=== PATIENT | female | born 1965 | race Caucasian/White ===

== ENCOUNTER → 2016-04-26 | Outpatient (CLI) | payer BC ==
[~2016-04-26] MED LIST: ACET-1256 PO; ADVIN25/60 INH; ALBU1AER9 INH; ASTN; IBUP-103 PO; LORA-741 PO; NUTR1TAB PO; PRLSR20 PO; SERT-234 PO; VENL25TA2 PO
--- NOTE | 2016-04-26 16:26 | MAMMOGRAPHY REPORT ---
BILATERAL DIGITAL SCREENING MAMMOGRAM TOMOSYNTHESIS WITH CAD: 04/26/2016 TECHNIQUE: Breast tomosynthesis in addition to standard 2D mammography was performed. Current study was also evaluated with a Computer Aided Detection (CAD) system. COMPARISON: Comparison is made to exams dated: 04/23/2015 mammogram, 04/19/2013 mammogram, 04/15/2010 ma mmogram, 04/22/2014 mammogram, 04/18/2012 mammogram, and 04/16/2011 mammogram - [facility] er. BREAST COMPOSITION: There are scattered areas of fibroglandular density in both breasts. FINDINGS: No suspicious masses, calcifications, or areas of architectural distortion are noted in e ither breast. There has been no significant interval change compared to prior exams. Bilateral circ umscribed benign-appearing masses are not significantly changed. Scattered bilateral benign-appeari ng calcifications are stable. IMPRESSION: ACR BI-RADS CATEGORY 2: BENIGN There is no mammographic evidence of malignancy. A 1 year screening mammogram is recommended. The p atient will receive written notification of the results. Approximately 10% of breast cancers are not detected with mammography. A negative mammographic repor t should not delay biopsy if a clinically suggestive mass is present. Jena Ryan M.D. ah/:04/26/2016 12:53:42 Program Development Manager: Gia RANDOLPH)(Anh), [facility] letter sent: Normal 1/2 BI-RADS Code: ACR BI-RADS Category 2: Benign
== END | disposition home or self-care (01) ==
LOC: C.MAMM 10:08
PROVIDERS: ATTEND Nurse Practitioner
DX: Z12.31 Encounter for screening mammogram for malignant neoplasm of breast (principal)

== ENCOUNTER → 2016-07-10 | Outpatient (CLI) | payer BC ==
[2016-07-10 13:37] LABS: ESTIMATED AVERAGE GLUCOSE 143 mg/dl; HA1C FLAG Normal (Normal)
[2016-07-10 13:43] LABS: BLOOD UREA NITROGEN 9 mg/dl (7-18); BUN/CREATININE RATIO 12.2 (10-20); CARBON DIOXIDE 25 mmol/L (21-32); CHLORIDE 109 mmol/L (98-107); CREATININE 0.74 mg/dl (0.60-1.20); GLUCOSE 130 mg/dl (70-99); POTASSIUM 3.9 mmol/L (3.5-5.1); SODIUM 142 mmol/L (136-145)
[2016-07-10 13:47] LABS: CALCIUM 9.1 mg/dl (8.5-10.1)
== END | disposition home or self-care (01) ==
LOC: C.LABPVFM 08:25
PROVIDERS: ATTEND Nurse Practitioner
DX: E11.9 Type 2 diabetes mellitus without complications (principal)

== ENCOUNTER → 2016-11-20 | Outpatient (CLI) | payer BC ==
[2016-11-20 14:21] LABS: ESTIMATED AVERAGE GLUCOSE 137 mg/dl; HA1C FLAG Normal (Normal)
[2016-11-20 14:25] LABS: BLOOD UREA NITROGEN 9 mg/dl (7-18); BUN/CREATININE RATIO 12.6 (10-20); CALCIUM 8.5 mg/dl (8.5-10.1); CARBON DIOXIDE 25 mmol/L (21-32); CHLORIDE 109 mmol/L (98-107); CREATININE 0.74 mg/dl (0.60-1.20); GLUCOSE 125 mg/dl (70-99); POTASSIUM 4.1 mmol/L (3.5-5.1); SODIUM 140 mmol/L (136-145)
[2016-11-20 14:28] LABS: CHOLESTEROL 146 mg/dl (0-200); CHOLESTEROL/HDL RATIO 1.8; HDL CHOLESTEROL 79 mg/dl; LDL CHOLESTEROL CALCULATED 49 mg/dl; TRIGLYCERIDES 88 mg/dl (0-150); VERY LOW DENSITY LIPOPROT CALC 18 mg/dl
== END | disposition home or self-care (01) ==
LOC: C.LABPVFM 08:21
PROVIDERS: ATTEND Nurse Practitioner
DX: E11.9 Type 2 diabetes mellitus without complications (principal); K76.0 Fatty (change of) liver, not elsewhere classified; E55.9 Vitamin D deficiency, unspecified

== ENCOUNTER 2017-04-13 11:19 | Emergency (ER) | payer BC ==
[~2017-04-13] VITALS: Ht 165.1 cm; Wt 89.4 kg
[2017-04-13 11:22] VITALS: Ht 165.1 cm; Wt 89.4 kg
[2017-04-13] MEDS ORDERED: KETOROLAC TROMETHAMINE 60 MG/2 ML VIAL IM STA (11:54)
[2017-04-13] MEDS ORDERED: NUTRTAB40 PO (12:06)
[2017-04-13] MEDS ORDERED: MAGN400T6 PO (12:06)
[2017-04-13] MEDS ORDERED: METH-307 PO (12:06)
[2017-04-13] MEDS ORDERED: DICL-201 PO (12:06)
[2017-04-13] MEDS ORDERED: ADVIN25/60 INH (12:06)
[2017-04-13] MEDS ORDERED: GLC/500 PO (12:06)
[2017-04-13] MEDS ORDERED: LOSA1TAB PO (12:06)
--- NOTE | 2017-04-13 12:24 | DIAGNOSTIC IMAGING REPORT ---
L-SPINE MIN 4 VIEWS ROUTINE CLINICAL HISTORY: low back pain with radiculopathy COMPARISON STUDY: No previous studies for comparison. FINDINGS: No acute fractures or subluxations are visualized. There are mild degenerative changes most pronounced at the L5-S1 level. No destructive lesions are visualized on conventional radiographic imaging. IMPRESSION: Mild degenerative change. No acute fractures or subluxations identified Electronically signed by: Ruben Beard M.D. 04/13/2017 12:23 PM Dictated Date/Time: 04/13/2017 12:22 PM
[2017-04-13] MEDS ORDERED: METH750T PO (13:18)
[2017-04-13] MEDS ORDERED: METH4PAK PO (13:18)
[2017-04-13 13:41] VITALS: BP 129/76; PULSE 63; TEMP 36.7; O2SAT 97
--- NOTE | 2017-04-13 15:18 | EMERGENCY ROOM VISIT NOTE ---
ED Visit Note First contact with patient: 11:30 CHIEF COMPLAINT: "I hurt" HISTORY OF PRESENT ILLNESS: This 51-year-old female patient presents to the emergency department ambulatory, with her , complaining of pain in the low back which began approximately one month ago. The patient states the pain began spontaneously while getting out of bed one day. She does believe that she may have twisted and injured the muscles in her lower back. She had been wearing a back brace to work, and then did go see her primary care provider. She was given a course of Robaxin and Voltaren for her discomfort. She states she was feeling better, then 1 week later was sent to physical therapy. She states since physical therapy for 2 weeks, her symptoms have been getting worse. The pain was gradual in onset, is now constant and worse with movement. The patient notes the pain as severe and a 7/10. She describes the pain as "like a ball in my low back, like a hot tinter photograph the back of my thigh, and like sandpaper in my calf". She has not had any imaging performed. The patient has taken Robaxin and Voltaren without relief of the pain. The patient denies any loss of control of their bowel or bladder functions. There has been no leg numbness or weakness, and no change in sensation. No nausea or vomiting or abdominal pain. No chest pain or shortness of breath. The patient has not had prior back injuries, but does report similar symptoms approximately one year ago. No dysuria or increased urinary frequency. Physical therapy did recommend pain management, but the patient is waiting for a call back regarding pain management. She states "I cannot wait any longer". REVIEW OF SYSTEMS: A 10 system review of systems was performed with positives and pertinent negatives listed in the history of present illness. All other systems were reviewed and are negative. ALLERGIES: None MEDICATIONS: Diclofenac, Advair, Cozaar, magnesium, Glucophage, Robaxin, estroven, Prilosec, Effexor PMH: Diabetes, asthma SOCIAL HISTORY: The patient lives locally with family. She admits to smoking one pack of cigarettes per day. She denies drug or alcohol use. PHYSICAL EXAM: VITALS: Vitals are noted on the nurse's note and reviewed by myself. Vital signs stable. GENERAL: This is a 51-year-old obese white female, in no acute distress, nondiaphoretic, well-developed well-nourished. SKIN: The skin was without rashes, erythema, edema, or bruising. Capillary refill less than 2 seconds. NECK: Supple without nuchal rigidity. No cervical spine tenderness. No paraspinous muscle tenderness. HEART: Regular rate and rhythm without murmurs gallops or rubs. LUNGS: Clear to auscultation bilaterally without wheezes, rales or rhonchi. ABDOMEN: Positive bowel sounds x 4. Normal tympanic percussion. Soft, nontender, without masses or organomegaly. Ellis sign negative. MUSCULOSKELETAL: No muscle atrophy, erythema, or edema noted of the back. There is no tenderness over the lumbar spinous processes. There is moderate tenderness over the paraspinous muscles in the right, overlying the SI joint. There is no tenderness over the thoracic spine or paraspinous muscles. There are muscle spasms present. The patient is slow to move around with maximum tenderness with position changes. Positive straight leg raise test on the right. NEURO: Patient was alert and oriented to person place and time. Normal sensation to light and sharp touch. Deep tendon reflexes 2+ in the lower extremities. Dorsalis pedis pulse 2+ bilaterally. Strength 5/5 and equal in the bilateral lower extremities. RADIOLOGY: X-Ray L Spine FINDINGS: No acute fractures or subluxations are visualized. There are mild degenerative changes most pronounced at the L5-S1 level. No destructive lesions are visualized on conventional radiographic imaging. IMPRESSION: Mild degenerative change. No acute fractures or subluxations identified EMERGENCY DEPARTMENT COURSE: The patient was seen and evaluated as above. She was given 60 mg Toradol IM. X-rays of the lumbar spine were performed and reviewed by myself and radiologist. These showed some degenerative change at L5 -S1, but did not show any significant bony abnormality or obvious lesions. The patient was reassessed and did note mild improvement in her back pain. Discharge instructions reviewed, and the patient was discharged home in good condition. I attest that I have personally reviewed the patient's current medication list. Patient was found to have normal blood pressure on screening and does not require follow-up. Etiologies such as lumbago, sciatica, cauda equina, epidural abscess, osteomyelitis, fracture, aortic disease, metastatic disease, infection, renal colic, gastrointestinal, as well as others were entertained. DIAGNOSIS: Lumbar strain with sciatica Current/Historical Medications Scheduled Diclofenac (Voltaren), 75 MG PO BID Fluticasone Prop/Salmeterol (Advair Diskus 250/50 60 Dose), 1 PUFF INH BID Fluticasone Prop/Salmeterol (Advair Diskus 250/50 60 Dose), 1 PUFF INH BID Losartan Potassium (Cozaar), 25 MG PO DAILY Magnesium Oxide (Mag-Ox), 400 MG PO DAILY Metformin Hcl (Glucophage), 500 MG PO BID Methocarbamol (Robaxin), 750 MG PO BID Methylprednisolone (Medrol Dosepak), 0 PO DAILY Nutritional Supplements (Estroven), 1 TAB PO DAILY Omeprazole (Prilosec), 20 MG PO QAM Venlafaxine Hcl (Effexor), 25 MG PO BID Scheduled PRN Methocarbamol (Robaxin), 1 TAB PO TID PRN for Muscle Spasms Allergies Coded Allergies: No Known Allergies (Verified , 04/26/02) Vital Signs Date Time Temp Pulse Resp B/P (MAP) Pulse Ox O2 Delivery O2 Flow Rate FiO2 04/13/17 13:41 36.7 63 18 129/76 97 04/13/17 11:22 36.7 70 18 139/85 98 Room Air Medications Administered Medications (Trade) Dose Ordered Sig/Leydi Route Start Time Stop Time Status Last Admin Dose Admin Ketorolac Tromethamine (Toradol Inj) 60 mg NOW STAT IM 04/13/17 11:54 04/13/17 11:56 DC 04/13/17 12:08 60 MG Departure Information Impression Primary Impression: Strain of lumbar region Additional Impression: Sciatica Dispostion Home / Self-Care Condition GOOD Prescriptions Methocarbamol (ROBAXIN) 750 Mg Tab 1 TAB PO TID Y for Muscle Spasms, #30 TAB Prov: oRxana Ibarra PA-C 04/13/17 Methylprednisolone (MEDROL DOSEPAK) 4 Mg Baudilio 0 PO DAILY, #1 PKT Prov: Roxana Ibarra PA-C 04/13/17 Referrals Faith Lawrence C.R.N.P (PCP) Patient Instructions ED Neck Back Pain General, ED Sciatica, ED Spasm Muscle, [facility] Additional Instructions You have been treated in the Emergency Department for Back Pain. You have been prescribed Robaxin 1 tabs orally, three times per day. Do NOT exceed 3 tabs per day. Take your first dose at bedtime as it can make you drowsy. Always take all medications as prescribed. You have been prescribed a Medrol Dosepak. This is a steroid which will help decrease your inflammation, redness, and itch. Take the medicine as prescribed. Take the ENTIRE 6 day course of the steroids. Ibuprofen(Motrin, Advil) may be used for fever or pain. Use 600mg every six hours as needed. Take with food. Avoid using more than 2400mg in a 24 hour period. Do not use 2400mg per day for more than three consecutive days without physician direction. Prolonged inappropriate use can lead to stomach upset or ulcers. DO NOT TAKE THIS MEDICATION WHILE TAKING OTHER NSAIDS OR STEROIDS ( medrol dosepak). (AND/OR) Acetaminophen(Tylenol) may be used for fever or pain. Use 1000mg every six hours as needed. Avoid using more than 3000mg in a 24 hour period. If this is an acute injury, ice can be applied to the area of pain for the first 3 days to help decrease pain and inflammation. After the first 3 days, a heating pad can be used over the area for continued soothing relief. You should schedule a follow-up appointment in 2-3 days with your Primary Care Provider for further evaluation and treatment of your back pain. Return to the Emergency Department if your current symptoms worsen despite treatment course outlined above, or if you develop any of the following symptoms : intractable pain despite aforementioned treatment course, loss of control of your bowel or bladder, numbness or tingling in your groin, or development of a fever. Work Instructions Return To Work: 2 days Problem Qualifiers Primary Impression: Strain of lumbar region Encounter type: initial encounter Qualified Codes: S39.012A - Strain of muscle, fascia and tendon of lower back, initial encounter Additional Impression: Sciatica Laterality: right Qualified Codes: M54.31 - Sciatica, right side
[2017-04-15] MEDS ORDERED: CHOL2000 PO (08:25)
== END 2017-04-13 13:45 | disposition home or self-care (01) ==
LOC: C.EDB 11:20 → C.EDD 13:45
DX: S39.012A Strain of muscle, fascia and tendon of lower back, initial encounter (principal); X58.XXXA Exposure to other specified factors, initial encounter; M51.17 Intervertebral disc disorders with radiculopathy, lumbosacral region; E11.9 Type 2 diabetes mellitus without complications; J45.909 Unspecified asthma, uncomplicated; Z79.84 Long term (current) use of oral hypoglycemic drugs

== ENCOUNTER → 2017-04-28 | Outpatient (CLI) | payer BC ==
[~2017-04-28] MED LIST changes: -ACET-1256 PO; -ADVIN25/60 INH; -ALBU1AER9 INH; -ASTN; +CHOL2000 PO; +DICL-201 PO; +GLC/500 PO; -IBUP-103 PO; -LORA-741 PO; +LOSA1TAB PO; +MAGN400T6 PO; +METH-307 PO; -NUTR1TAB PO; +NUTRTAB40 PO; -SERT-234 PO
--- NOTE | 2017-04-28 14:46 | DIAGNOSTIC IMAGING REPORT ---
LUMBAR SPINE W/O CONTRAST CLINICAL HISTORY: 51 years-old Female with M54.30 [id number] Radicular low back [id number]. Acute low back pain with radiation into the right hip and right leg COMPARISON: Lumbar spine radiographs 04/13/2017 TECHNIQUE: Multiplanar, multi sequence MRI of the lumbar spine was performed without intravenous contrast. FINDINGS: The large uoaqq-pj-qkol chain carrier localizer images demonstrate no gross abnormality. No acute intra-abdominal, intrapelvic or paraspinal abnormality identified. No aortic aneurysm or adenopathy identified. No focal soft tissue or bone marrow edema or acute fracture or subluxation. Conus medullaris terminates at the L1-L2 level. Signal within the imaged thoracic spinal cord appears to be within normal limits. The cauda equina appear unremarkable. 9 mm T1 and T2 hyperintense lesion of the L4 vertebral body suggests hemangioma. Probable small perineural root sleeve cysts are seen bilaterally at S2 level measuring up to 9 mm. T12-L1: No central canal or neural foraminal stenosis. L1-L2: Minimal spondylitic spurring and mild facet arthrosis. No central canal or foraminal narrowing. L2-L3: Mild facet arthrosis and ligamentum flavum thickening. No central canal or foraminal narrowing. L3-L4: Mild facet arthrosis and ligamentum flavum thickening. No central canal or foraminal narrowing. Mild disc desiccation and mild intervertebral disc space narrowing L4-L5: Mild facet arthrosis and ligamentum flavum thickening. Small circumferential annular disc bulge which favors the left neuroforamen causes mild left foraminal narrowing. Right foramen and central canal are patent. L5-S1: Mild to moderate intervertebral disc space narrowing with spondylitic spurring, mild facet arthrosis and ligamentum flavum thickening with trace facet effusions. There is a small circumferential annular disc bulge. Right paracentral, lateral recess and right foraminal disc extrusion measures up to 2.1 x 0.4 cm extending superiorly 8 mm to the level of the mid L5 vertebral body. This causes mild central canal, severe right lateral recess and moderate right foraminal narrowing abutting and displacing the right S1 nerve root. Additionally, at this level there is a left lateral recess/foraminal disc extrusion measuring 9 x 9 mm which extends superiorly approximately 4 mm resulting in mild left lateral recess and moderate left foraminal narrowing. IMPRESSION: 1. Mild to moderate intervertebral disc space narrowing with small circumferential annular disc bulge at L5-S1 is noted in addition to mild facet arthrosis and ligamentum flavum thickening. Large right paracentral/lateral recess and right foraminal disc extrusion at this level causes mild central canal, severe right lateral recess and moderate right foraminal narrowing, abutting and displacing the right S1 nerve root. 2. Additionally at L5-S1, there is a left lateral recess/foraminal disc extrusion causing mild left lateral recess and moderate left foraminal narrowing. 3. Small circumferential annular disc bulge L4-L5 causes mild left foraminal stenosis. The above report was generated using voice recognition software. It may contain grammatical, syntax or spelling errors. Electronically signed by: Tyrone Escamilla M.D. 04/28/2017 2:45 PM Dictated Date/Time: 04/28/2017 2:33 PM
== END | disposition home or self-care (01) ==
LOC: C.MRIBC 13:46
PROVIDERS: ATTEND Nurse Practitioner
DX: M51.17 Intervertebral disc disorders with radiculopathy, lumbosacral region (principal)

== ENCOUNTER → 2017-04-28 | Outpatient (CLI) | payer BC ==
--- NOTE | 2017-04-28 15:10 | MAMMOGRAPHY REPORT ---
BILATERAL DIGITAL SCREENING MAMMOGRAM TOMOSYNTHESIS WITH CAD: 04/28/2017 CLINICAL HISTORY: Routine screening. Patient has no complaints. TECHNIQUE: Breast tomosynthesis in addition to standard 2D mammography was performed. Current study was also evaluated with a Computer Aided Detection (CAD) system. COMPARISON: Comparison is made to exams dated: 04/26/2016 mammogram, 04/23/2015 mammogram, 04/22/2014 ma mmogram, 04/19/2013 mammogram, 04/18/2012 mammogram, and 04/16/2011 mammogram - [facility] BREAST COMPOSITION: There are scattered areas of fibroglandular density in both breasts. FINDINGS: No suspicious masses, calcifications, or areas of architectural distortion are noted in ei ther breast. There has been no significant interval change compared to prior exams. Bilateral circum scribed benign-appearing masses are not significantly changed. Scattered bilateral benign-appearing calcifications are stable. IMPRESSION: ACR BI-RADS CATEGORY 2: BENIGN There is no mammographic evidence of malignancy. A 1 year screening mammogram is recommended. The pa tient will receive written notification of the results. Approximately 10% of breast cancers are not detected with mammography. A negative mammographic report should not delay biopsy if a clinically suggestive mass is present. Jena Ryan M.D. /:04/28/2017 09:27:21 Tactical Response Group Officer: Anu Monae M, [facility] letter sent: Normal 1/2 BI-RADS Code: ACR BI-RADS Category 2: Benign
== END | disposition home or self-care (01) ==
LOC: C.MAMM 07:51
PROVIDERS: ATTEND Nurse Practitioner
DX: Z12.31 Encounter for screening mammogram for malignant neoplasm of breast (principal)

== ENCOUNTER 2017-05-30 08:24 | Observation (INO) | payer BC ==
[2017-05-18 15:15] VITALS: BMI 33.0
--- NOTE | 2017-05-18 15:45 | PAT Medication Instructions ---
Service Date May 18, 2017. Current Home Medication List Acetaminophen (Tylenol), 3 TAB PO BID Albuterol Sulfate (Proair Respiclick), 2 PUFFS INH QD PRN for SOB/Wheezing B-Complex W/Biotin & Folic Aci (Super B-Complex), 1 CAP PO QAM Cholecalciferol (D3-1000), 1 TAB PO QAM Fluticasone Furoate (Flonase Sensimist), 1 SPRAY ROBERT QAM Fluticasone Prop/Salmeterol (Advair Diskus 250/50 60 Dose), 1 PUFF INH QAM Gabapentin (Neurontin), 100 MG PO QPM Ibuprofen (Motrin), 600 MG PO BID Losartan Potassium (Cozaar), 25 MG PO QAM Magnesium Oxide (Mag-Ox), 400 MG PO QAM Metformin Hcl (Glucophage), 500 MG PO BID Nutritional Supplements (Estroven), 1 TAB PO QAM Omeprazole (Prilosec), 20 MG PO QAM Venlafaxine Hcl (Effexor), 25 MG PO BID Medication Instructions For Your Scheduled Surgery - Hold the following medications 2 weeks prior to surgery: Ibuprofen (Motrin), 600 MG PO BID - Hold the following medications the morning of surgery: Nutritional Supplements (Estroven), 1 TAB PO QAM Metformin Hcl (Glucophage), 500 MG PO BID Losartan Potassium (Cozaar), 25 MG PO QAM Magnesium Oxide (Mag-Ox), 400 MG PO QAM B-Complex W/Biotin & Folic Aci (Super B-Complex), 1 CAP PO QAM Cholecalciferol (D3-1000), 1 TAB PO QAM - Take the following medications the morning of surgery with a sip of water: Acetaminophen (Tylenol), 3 TAB PO BID (okay to take up to 4 hours prior to surgery if needed) Albuterol Sulfate (Proair Respiclick), 2 PUFFS INH QD PRN for SOB/Wheezing (if needed) Fluticasone Furoate (Flonase Sensimist), 1 SPRAY ROBERT QAM Fluticasone Prop/Salmeterol (Advair Diskus 250/50 60 Dose), 1 PUFF INH QAM Omeprazole (Prilosec), 20 MG PO QAM Venlafaxine Hcl (Effexor), 25 MG PO BID - Take the following medications as scheduled the night before surgery: Venlafaxine Hcl (Effexor), 25 MG PO BID Metformin Hcl (Glucophage), 500 MG PO BID Gabapentin (Neurontin), 100 MG PO QPM Acetaminophen (Tylenol), 3 TAB PO BID Albuterol Sulfate (Proair Respiclick), 2 PUFFS INH QD PRN for SOB/Wheezing (if needed) If you have any questions please call us at [phone] or [phone] or [phone]
[2017-05-18 16:17] LABS: HEMATOCRIT 42.4 % (37-47); HEMOGLOBIN 15.1 g/dL (12.0-16.0); MEAN CELL VOLUME 92.8 fL (80-100); MEAN CORPUSCULAR HGB CONC 35.6 g/dl (32-36); MEAN PLATELET VOLUME 10.6 fL (7.4-10.4); PLATELET COUNT 138 K/uL (130-400); RED CELL DISTRIBUTION WIDTH CV 13.3 % (11.5-14.5); WHITE BLOOD COUNT 8.75 K/uL (4.8-10.8)
[2017-05-18 16:27] LABS: PTT PATIENT 28.5 SECONDS (21.0-31.0)
[2017-05-18 16:28] LABS: CREATININE 0.61 mg/dl (0.60-1.20); POTASSIUM 3.5 mmol/L (3.5-5.1)
--- NOTE | 2017-05-18 16:28 | DIAGNOSTIC IMAGING REPORT ---
TWO VIEW CHEST CLINICAL HISTORY: Preoperative examination. FINDINGS: PA and lateral chest radiographs are obtained. No prior studies are available for comparison at the time of dictation. The cardiomediastinal silhouette is unremarkable. The lungs and pleural spaces are clear. There is no pneumothorax. The bony thorax appears intact. IMPRESSION: No active disease in the chest. Electronically signed by: [place] M.D. 05/18/2017 4:27 PM Dictated Date/Time: 05/18/2017 4:26 PM
[2017-05-18 16:58] LABS: BASO % 0.5 %; BASO ABS # 0.04 K/uL (0-0.2); EOS % 1.5 %; EOS ABS # 0.13 K/uL (0-0.5); IG# 0.01 K/uL (0.00-0.02); LYMPH % 51.5 %; LYMPH ABS # 4.51 K/uL (1.2-3.4); MONO % 6.9 %; NEUT % 39.5 %; NEUT ABS # 3.46 K/uL (1.4-6.5)
[2017-05-19 08:51] LABS: HEMOGLOBIN A1C 6.7 % (4.5-5.6)
--- NOTE | 2017-05-29 12:54 | HISTORY & PHYSICAL EXAMINATION ---
DATE OF ADMISSION: 05/30/2017 HISTORY OF PRESENT ILLNESS: She is being preoped for lumbar spine diskectomy at L5-S1. Her major complaint is progressive leg weakness and lower extremity difficulty to the extremities. She has actually progressed enough that she uses a walker for support. She has a completely deficient S1 nerve root on the affected right hand side. PAST MEDICAL HISTORY: Diabetes, anxiety, and asthma. PAST SURGICAL HISTORY: Appendectomy and cholecystectomy. ALLERGIES: Negative. MEDICATIONS: Metformin, Effexor, Cozaar, Prilosec, Neurontin, Flonase, ProAir and Tylenol. FAMILY HISTORY: Heart disease and diabetes. SOCIAL HISTORY: She is . Rarely drinks alcohol. Mild tobacco. Moderately active. REVIEW OF SYSTEMS: She denies any fever, sweats, chills, or other constitutional symptoms. Occasional headaches. Denies chest pain or palpitations. Denies any asthma, wheezing, or shortness of breath. No nausea, vomiting, urgency, frequency or bowel or bladder incontinence. No confusion. Occasional depression. She has true weakness. OBJECTIVE: VITAL SIGNS: Blood pressure 120/80 and pulse regular at 80. Height 5 feet 4 inches and she is 170. GENERAL: She is in distress, concerned use of a walker for support. Mentation normal. No apparent depression. CARDIAC: Normal S1 and S2. LUNGS: Clear to auscultation. No wheezing. No lymphadenopathy. ABDOMEN: Soft and nontender. Good bowel sounds. EXTREMITIES: Intact. She has weakness of pushoff strength in dorsiflexion, right hand side. Her skin seems to be intact. She has pain with straight leg raising as well. Her images demonstrated disk herniation at L5-S1. 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 Progressive neurological deficit with true weakness. DISPOSITION: Includes surgery tomorrow on the 30 of May, laminectomy and diskectomy at L5-S1.
[2017-05-30] VITALS (9 sets, daily range): BP systolic 108–153; BP diastolic 66–90; PULSE 65–81; TEMP 36.7–37.1; O2SAT 90–97; Ht 165.1 cm; Wt 90.1 kg
[~2017-05-30] VITALS: Ht 165.1 cm; Wt 90.1 kg
[~2017-05-30 08:24] MED LIST changes: +ACET-1256 PO; +ACETAMINOPHEN IV 100 ML IV SCH; +ADVIN25/60 INH; +ALBU18002 INH; +B-CO1CAP5 PO; +CEFAZOLIN 2000MG IV PUSH 15 ML IV SCH; -CHOL2000 PO; +CHOLTAB9 PO; +DEXAMETHASONE SOD INJ 4 MG/ML VIAL ONE; -DICL-201 PO; +FENTANYL CITRATE INJ 50 MCG/1 ML 2 ML VIAL ONE; +FLUT27.53 NAE; +GABA-112 PO; +GLYCOPYRROLATE INJ 0.2 MG/ML VIAL ONE; +IBUP600T44 PO; +LACTATED RINGER'S 1000ML 1,000 ML IV SCH; +LIDOCAINE HCL 2% 2 ML VIAL (20MG/ML) ONE; -METH-307 PO; +MIDAZOLAM HCL 1 MG/ML 2ML VIAL ONE; +NEOSTIGMINE METHYLSULFATE 5 MG/5 ML SYR ONE; +NSS 1000ML IV SCH; +ONDANSETRON INJ 2 MG/ML 2 ML VIAL ONE; +PROPOFOL IV EMULSION 10 MG/ML 20 ML VIAL IV ONE; +ROCURONIUM BROMIDE 10 MG/ML 5 ML VIAL IV ONE
[2017-05-30] MEDS ORDERED: EpHEDrine SULFATE INJ 50 MG/ML AMP IV PRN (08:45)
[2017-05-30] MEDS ORDERED: ATROPINE SULFATE 0.1 MG/ML 5ML SYR IV PRN (08:45)
[2017-05-30] MEDS ORDERED: ONDANSETRON INJ 2 MG/ML 2 ML VIAL IV PRN ×2 (08:45→12:45)
[2017-05-30] MEDS ORDERED: ROCURONIUM BROMIDE 10 MG/ML 5 ML VIAL IV ONE ×2 (09:10)
[2017-05-30] MEDS ORDERED: ACETAMINOPHEN 1000 MG/100 ML IV IV ONE (09:37)
[2017-05-30] MEDS ORDERED: GELATIN SPONGE SZ 100 ONE (11:05)
[2017-05-30] MEDS ORDERED: THROMBIN FOR SOLN 20000 UNIT KIT ONE (11:05)
[2017-05-30] MEDS ORDERED: BUPIVACAINE/EPINEPHRINE 0.5% MPF 1:200,000 30 ML VIAL ONE (11:06)
[2017-05-30] MEDS ORDERED: BACITRACIN 50000 UNIT VIAL ONE (11:06)
[2017-05-30] MEDS ORDERED: VANCOMYCIN HCL 1000MG/20ML VIAL ONE (11:07)
--- NOTE | 2017-05-30 11:15 | History & Physical Bridge Note ---
H&P Re-Evaluation Bridge Note: I have examined the patient, reviewed the History & Physical and in the interval since the performance of the History & Physical I have noted the following changes of clinical significance: No changes noted
[2017-05-30] MEDS ORDERED: FENTANYL CITRATE INJ 50 MCG/1 ML 2 ML VIAL ONE (12:02)
--- NOTE | 2017-05-30 12:32 | [facility] Post Operative Brief Note ---
Immediate Operative Summary Operative Date May 30, 2017. Pre-Operative Diagnosis Disc herniation L5-S1 Post-Operative Diagnosis Disc herniation L5-S1 Procedure(s) Performed L5-S1 Discectomy Surgeon Dr. Ho Pilot Fuel Engineer Surgeon(s) Leonid Marcum PA-C Estimated Blood Loss 50ml Findings Consistent with Post-Op Diagnosis Specimens none per surgeon Drains hemovac Anesthesia Type General Complication(s) none Disposition Disposition: Recovery Room / PACU
[2017-05-30] MEDS ORDERED: GLYCOPYRROLATE INJ 0.2 MG/ML VIAL ONE (12:37)
[2017-05-30] MEDS ORDERED: HYDROmorphone INJ 1 MG/ML SYR IV PRN ×2 (12:45)
[2017-05-30] MEDS ORDERED: OXYCODONE/ACETAMINOPHEN 5-325 TAB PO PRN (12:45)
[2017-05-30] MEDS ORDERED: PROMETHAZINE HCL INJ 12.5 MG in SODIUM CHLORIDE 0.9% 50ML 50 ML IV PRN (12:45)
[2017-05-30] MEDS ORDERED: LORAZEPAM INJ 1 MG in SYRINGE 0 ML IV PRN (12:45)
[2017-05-30] MEDS ORDERED: MAGNESIUM HYDROXIDE SUSP 30 ML UDC PO PRN (12:45)
[2017-05-30] MEDS ORDERED: LORAZEPAM 1 MG TAB PO PRN (12:45)
[2017-05-30] MEDS ORDERED: ACETAMINOPHEN 325 MG TAB PO PRN (12:45)
[2017-05-30] MEDS ORDERED: METOCLOPRAMIDE HCL INJ 5 MG/ML 2 ML VIAL IV PRN (12:45)
[2017-05-30] MEDS: FENTANYL CITRATE INJ 50 MCG/1 ML 2 ML VIAL IV PRN ×4 (13:03→13:21)
--- NOTE | 2017-05-30 13:16 | OPERATIVE REPORT ---
DATE OF OPERATION: 05/30/2017 PREOPERATIVE DIAGNOSES: Disc herniation, stenosis L5-S1. POSTOPERATIVE DIAGNOSES: Same. PROCEDURE: Include laminectomy, discectomy L5-S1. SURGEON: Dr. Ho. PRIVATE EYE: Leonid Marcum PA-C. COMPLICATIONS: Zero. BLOOD LOSS: 50-75 mL DESCRIPTION OF PROCEDURE: The patient was taken to the operating room where general intubated anesthetic provided to the patient, placed prone, scrubbed, prepped and draped sterile. We made a skin incision, fascial incision, marked with C-arm guidance at the L5-S1 interspace. We did a formal decompression of both nerve roots. The disc herniation was more on the right hand side. We retracted the dura and the nerve root in medial direction and found the disc herniation. We incised this with a 15-scalpel blade. We used the pituitary to excise the remaining of the disc material. We completed the foraminotomy. We irrigated thoroughly. We looked for any free fragments. None were to be found that they were easy to identify. We then irrigated and closed over vancomycin powder and Hemovac drain with 1 Vicryl suture, 2-0 and staple gun on the skin, sterile dressing applied. The patient returned to PACU stable. I attest to the content of the Intraoperative Record and any orders documented therein. Any exception s are noted below.
[2017-05-30] MEDS: HYDROmorphone INJ 1 MG/ML SYR IV PRN ×4 (13:26→13:45)
[2017-05-30] MEDS ORDERED: IV FLUIDS COMPLETED PRN (13:45)
--- NOTE | 2017-05-30 13:52 | Anesthesiology Progress Note ---
Anesthesia Post Op Note Date & Time May 30, 2017 at 13:52 Vital Signs Pain Intensity: 3 Vital Signs Past 12 Hours Date Time Temp Pulse Resp B/P (MAP) Pulse Ox O2 Delivery O2 Flow Rate FiO2 05/30/17 13:28 36.5 81 17 143/77 (101) 97 Oxymask 10 05/30/17 13:27 74 17 97 05/30/17 13:27 75 17 05/30/17 13:26 143/76 05/30/17 13:22 75 15 98 05/30/17 13:22 76 15 05/30/17 13:21 155/75 05/30/17 13:17 74 18 05/30/17 13:17 74 18 100 05/30/17 13:16 73 18 05/30/17 13:16 73 18 150/103 100 05/30/17 13:11 73 20 132/78 100 05/30/17 13:11 74 20 05/30/17 13:06 76 17 145/75 100 05/30/17 13:06 76 17 05/30/17 13:01 79 18 153/67 100 05/30/17 13:01 79 18 05/30/17 12:56 86 15 153/90 100 05/30/17 12:56 86 15 05/30/17 12:51 94 05/30/17 12:51 94 139/75 100 05/30/17 12:51 36.3 93 20 139/75 (108) 100 Oxymask 10 05/30/17 09:47 37.1 74 20 152/90 (110) 95 Room Air Notes Mental Status: alert / awake / arousable, participated in evaluation Pt Amnestic to Procedure: Yes Nausea / Vomiting: adequately controlled Pain: adequately controlled Airway Patency, RR, SpO2: stable & adequate BP & HR: stable & adequate Hydration State: stable & adequate Anesthetic Complications: no major complications apparent
--- NOTE | 2017-05-30 13:58 | DIAGNOSTIC IMAGING REPORT ---
SPINE ONE VIEW, ANY LEVEL CLINICAL HISTORY: 51 years-old Female presenting with L5-S1 DISCECTOMY. TECHNIQUE: 1 fluoroscopic spot image(s) obtained as part of an intraoperative procedure. COMPARISON: 05/11/2017. FINDINGS/IMPRESSION: Surgical instrument and surgical sponge project over the L5-S1 level. Normal anatomic alignment. Please see surgical report for further details. Fluoroscopy dosage (mGy): 0.87. Fluoroscopy time: 1.9 seconds. Number of fluoroscopic spot images: 1. Electronically signed by: Alexys Rivera M.D. 05/30/2017 1:57 PM Dictated Date/Time: 05/30/2017 1:56 PM
[2017-05-30] MEDS: SODIUM CHLORIDE 0.9% 1000ML 1,000 ML IV SCH (15:04)
[2017-05-30] MEDS: DEXAMETHASONE INJ 10 MG in SYRINGE 0 ML IV SCH ×2 (15:25→22:13)
[2017-05-30] MEDS: KETOROLAC TROMETHAMINE 30 MG/ML VIAL IV SCH ×2 (15:25→20:46)
[2017-05-30] MEDS: METFORMIN HCL 500 MG TAB PO SCH (17:58)
[2017-05-30] MEDS: CEFAZOLIN IV 2,000 MG in SYRINGE 0 ML IV SCH (19:10)
[2017-05-30] MEDS: VENLAFAXINE HCL 50 MG TAB PO SCH (20:46)
[2017-05-30] MEDS ORDERED: GABAPENTIN 100 MG CAP PO SCH (21:00)
[2017-05-31] MEDS: OXYCODONE/ACETAMINOPHEN 5-325 TAB PO PRN ×2 (00:14→07:43)
[2017-05-31] MEDS: SODIUM CHLORIDE 0.9% 1000ML 1,000 ML IV SCH (03:10)
[2017-05-31 03:28] VITALS: BP 132/74; PULSE 60; TEMP 37.2; O2SAT 90
[2017-05-31] MEDS: CEFAZOLIN IV 2,000 MG in SYRINGE 0 ML IV SCH ×2 (03:33→12:10)
[2017-05-31] MEDS: KETOROLAC TROMETHAMINE 30 MG/ML VIAL IV SCH ×2 (03:35→08:35)
[2017-05-31] MEDS ORDERED: NURSING VERBAL MED ORDER ONE (05:00)
[2017-05-31] MEDS ORDERED: BISACODYL 5 MG TABEC PO PRN (06:00)
[2017-05-31] MEDS ORDERED: BISACODYL 10 MG SUPP PR PRN (06:00)
[2017-05-31] MEDS ORDERED: COUGH DROP (SUGAR FREE) LOZ 24 LOZ/1 BOX LOZ ONE (06:26)
[2017-05-31] MEDS: DEXAMETHASONE INJ 10 MG in SYRINGE 0 ML IV SCH (06:35)
--- NOTE | 2017-05-31 07:02 | Discharge Instructions ---
Discharge Instructions Date of Service May 31, 2017. Admission Reason for Admission: Spinal Stenosis, Disc Herniation Discharge Discharge Diagnosis / Problem: same Discharge Goals Goal(s): Improve function Activity Recommendations Activity Limitations: as noted below Lifting Limitations: no more than 5 pounds . Instructions / Follow-Up Instructions / Follow-Up MEDICATIONS: Please take your prescriptions as instructed at your pre-op appointment. SPECIAL CARE: The following information is intended to answer some of the common questions and concerns regarding your surgery. Each patient is an individual and receives individual counselling throughout the course of treatment, from diagnosis to surgery all the way through recovery. What follows is not an exhaustive list, but should be a useful guide to some of the common questions and concerns patients have regarding their surgeries. These are not provided to keep you from calling us; rather, they give you something accurate and concrete to reference as you recover from your procedure. If you need us, we are available to you. As always, if you are not sure about something, call us at [phone]. MEDICAL EMERGENCIES: For these conditions, call 911 or go to your local hospital-based Emergency Department - not [facility] or equivalent. * Paralysis * Severe chest pain or difficulty breathing * Swelling or redness of either leg Spine procedures can be rather complex and though complications are rare, they do occur. In such cases, effective advice regarding emergency situations cannot always be addressed over the telephone. You may be referred to the emergency department for more effective management of your problem. Activity Limitations: It is important to give your body time to heal, so please limit your activities : * In general, don't do anything that moves your spine too much. You should avoid contact sports, twisting or heavy lifting while you recover. * 5-10 pounds is all you should attempt to lift. * You should not plan on driving for approximately 3 weeks and you should avoid traveling more than 30-45 minutes at a time. Longer trips should be broken down with walking breaks spaced appropriately. * Physical therapy is not usually required. * Walking and good posture practices will help you recover and regain your function. * Avoid straining or sudden changes in position. * In general, the goal is to take it easy and recover. Don't cause any new problems. Just relax. Showers: * Do not take a bath, use a Jacuzzi or hot tub or otherwise submerge your incision. * It is usually safe to take a shower 4-5 days after your surgery. * Your incision does not require any special creams or ointments. * Simply clean it with soap and water, dry and re-dress with a clean bandage afterwards. Incision: * Keep incision clean, dry and protected until your first follow-up appointment. * Some amount of drainage and redness is normal. Any drainage should be fairly clear and not have a foul odor. * If you feel anything is wrong or you have excessive drainage, please call us. * Your stitches and treasure will be removed 10-14 days after your surgery. At the time of your first post-op visit. * Neck surgeries are typically closed with a suture underneath the skin. The steri-strips over the incision should be maintained until we see you in the office. Bracing: * You may be provided with a back or neck brace to encourage good posture and prevent injury. It will remind you not to do too much as you heal and will alert others to the fact that you have had a surgery. * Back braces may be removed for showers and when you are resting at home. They must be worn when you are walking around for any period of time or for travel. * For neck surgery, you will likely be provided with two cervical collars. The soft collar ([place] or foam rubber) is worn most commonly throughout the day and while sleeping. The plastic collar (provided at the hospital) is for showering/bathing. * Except while eating, collars should remain in place. More specifically, bracing is provided for a purpose and should be worn. * Please obtain your brace or collars prior to your operation and bring them to the hospital with you on the day of surgery. * You should also bring your collars to your post-op appointment with Dr. Ho. You should always take good care of your body and practice healthy habits, especially following surgery. You should: * Follow your doctor's treatment plan * Sit and stand properly with good posture (ears over shoulders, shoulders over hips) Don't slouch * Learn to lift correctly * Exercise regularly (low-impact aerobic exercise is especially good, but check with your doctor first) * Generally, be up and walking for 5-10 minutes at a time at least 3-4 times per day from the day you get home * Increasing walking to tolerance until you can walk for 20-30 minutes at a time * Attain and maintain a healthy body weight * Eat healthy foods ( a well-balanced, low-fat diet rich in fruits and vegetables) and get enough calcium * Avoid excessive use of alcohol When to call our office - If you notice any of the following: * Increased pain not relieve by pain medicine * Fevers greater then 100 degrees F, chills or flu symptoms * Increased redness around incision * Drainage from the incision that is not clear * Any foul smelling drainage * Swelling or fluid collection beneath the skin Miscellaneous: * In the hospital, you may be given a walker or cane for support while walking. These are temporary needs and are intended to prevent injuries due to falls. You may discontinue them when you feel strong and steady enough on your feet. * Sleep in a comfortable position. We find that many patients find a lounge chair or recliner with several pillows to be beneficial in the early post-operative period. * The support stockings should be used for 7-10 days and may be discontinued when you are back to walking more and conducting usual household activities. No problem is insignificant. We are here to help you and get you well. Contact us at [phone]. Definitions: Foraminotomy: If part of the disc or a bone spur (osteophyte) is pressing on a nerve as it leaves the vertebra (through an exit called the foramen), a foraminotomy may be done. Otomy means "to make an opening." A foraminotomy is making the opening of the foramen larger, so the nerve can exit without being compressed. Laminotomy: Similar to the foraminotomy, a laminotomy makes a larger opening, this time in your bony plate protecting your spinal canal and spinal cord (the lamina). The lamina may be pressing on your nerve, so the surgeon may make more room for the nerves using a laminotomy. Laminectomy: Sometimes, a laminotomy is not sufficient. The surgeon may need to remove all or part of the lamina. This procedure is called a laminectomy. This can often be done at many levels without any harmful effects. Current Hospital Diet Patient's current hospital diet: Diabetes Type 2 Diet Discharge Diet Recommended Diet: Regular Diet, Diabetes Type 2 Diet Procedures Procedures Performed: L5-S1 Discectomy Pending Studies Studies pending at discharge: no Laboratory Results Hemoglobin A1c Test 05/18/17 15:52 Range/Units Estimated Average Glucose 146 mg/dl Hemoglobin A1c 6.7 H 4.5-5.6 % Medical Emergencies . Who to Call and When: Medical Emergencies: If at any time you feel your situation is an emergency, please call 911 immediately. . Non-Emergent Contact Non-Emergency issues call your: Primary Care Provider . "Provider Documentation" section prepared by Elder Ho. .
[2017-05-31 07:18] VITALS: BP 117/67; PULSE 60; TEMP 37.1; O2SAT 93
--- NOTE | 2017-05-31 07:58 | Anesthesiology Progress Note ---
Anesthesia Post Op Note Date & Time May 31, 2017 at 07:57 Vital Signs Pain Intensity: 2.0 Vital Signs Past 12 Hours Date Time Temp Pulse Resp B/P (MAP) Pulse Ox O2 Delivery O2 Flow Rate FiO2 05/31/17 07:18 37.1 60 16 117/67 (84) 93 Room Air 05/31/17 03:28 37.2 60 16 132/74 (93) 90 Room Air 05/31/17 00:05 Room Air 05/30/17 23:00 36.9 71 16 108/66 (80) 90 Room Air Notes Mental Status: alert / awake / arousable, participated in evaluation Pt Amnestic to Procedure: Yes Nausea / Vomiting: adequately controlled Pain: adequately controlled Airway Patency, RR, SpO2: stable & adequate BP & HR: stable & adequate Hydration State: stable & adequate Anesthetic Complications: no major complications apparent
[2017-05-31] MEDS: VENLAFAXINE HCL 50 MG TAB PO SCH (08:30)
[2017-05-31] MEDS: METFORMIN HCL 500 MG TAB PO SCH (08:30)
[2017-05-31] MEDS ORDERED: HYDR-4383 PO (08:37)
[2017-05-31] MEDS ORDERED: MAGNESIUM OXIDE 400 MG TAB PO SCH (09:00)
[2017-05-31] MEDS ORDERED: LOSARTAN POTASSIUM 25 MG TAB PO SCH (09:00)
[2017-05-31] MEDS ORDERED: POLYETHYLENE (MIRALAX) 17 GM PACK PO SCH (09:00)
[2017-05-31] MEDS ORDERED: FLUTICASONE/SALMETEROL 250/50 (ADVAIR) 14 PUFF/1 INHALER INH SCH (09:00)
[2017-05-31 10:50] VITALS: BP 114/64; PULSE 65; TEMP 36.8; O2SAT 92
[2017-05-31 12:37] VITALS: BP 114/64; PULSE 65; TEMP 36.8; O2SAT 92
--- NOTE | 2017-06-01 07:51 | DISCHARGE SUMMARY ---
She has improved, stable. Pain controlled. Vital signs stable. Alert and oriented. No chest pain. No shortness of breath. No calf tenderness. Wound protected. ASSESSMENT: Status post discectomy lumbar spine. DISPOSITION: Dressing changed today. Discharge home later today. Instructions, precautions and warnings provided and she does have a followup appointment.
== END 2017-05-31 14:52 | disposition home or self-care (01) ==
LOC: C.ACU 08:24 → C.3E 12:40 → ENRESERV 13:25
PROVIDERS: ADMIT Orthopaedic Surgery Orthopaedic Surgery of the Spine; ATTEND Orthopaedic Surgery Orthopaedic Surgery of the Spine
DX: M51.27 Other intervertebral disc displacement, lumbosacral region (principal); E11.9 Type 2 diabetes mellitus without complications; I10 Essential (primary) hypertension; F32.9 Major depressive disorder, single episode, unspecified; F41.9 Anxiety disorder, unspecified; K21.9 Gastro-esophageal reflux disease without esophagitis; J45.909 Unspecified asthma, uncomplicated; E66.9 Obesity, unspecified; Z68.33 Body mass index [BMI] 33.0-33.9, adult; Z90.89 Acquired absence of other organs; F17.200 Nicotine dependence, unspecified, uncomplicated; Z90.49 Acquired absence of other specified parts of digestive tract; Z98.890 Other specified postprocedural states; Z82.49 Family history of ischemic heart disease and other diseases of the circulatory system; Z83.3 Family history of diabetes mellitus

== ENCOUNTER 2023-03-14 06:58 | Inpatient (IN) ==
[2023-03-14] MEDS ORDERED: SODIUM CHLORIDE 0.9% 1,000 ML IV ONE (07:15)
[2023-03-14] MEDS ORDERED: FAMOTIDINE 20MG IV PUSH 20 MG/5 ML SYR IV STA (07:15)
[2023-03-14] MEDS ORDERED: ONDANSETRON INJ 2 MG/ML 2 ML VIAL IV STA (07:15)
--- NOTE | 2023-03-14 07:28 | Emergency Department Note ---
Impression & Plan SOB (shortness of breath), Lung cancer, Chest tightness, Throat tightness, Abnormal chest CT, Failure of outpatient treatment ED Provider Note NAME: GAIL ALMANZA AGE: 57 SEX: F : 1965 ARRIVES VIA: Walk-In INFORMANT: [Patient] ED PROVIDER(S): [[place] MD] CHIEF COMPLAINT: Sore throat, short of breath HISTORY OF PRESENT ILLNESS: The patient is a 57-year-old female who just finished antibiotics for pneumonia. She finished them up yesterday. He states that last evening, she began to notice a tightness and fullness in her throat as if her throat was swelling. Her chest was somewhat tight. Her voice has become hoarse and weak. She has had a decreased appetite. She has had hot flashes and some chills. No documented fever. There has been no vomiting, no abdominal pain. She has not been coughing. The patient does have a history of lung cancer. She is on Keytruda as treatment for her lung cancer. She does not have a rash anywhere, she is not itchy. The throat does not really seem to hurt, it just is tight as if it is swelling. PMHx/PSHx/Social Hx: See Below PHYSICAL EXAM: GENERAL: Patient is in no acute distress. Seems slightly anxious. HEENT: No acute trauma, normocephalic atraumatic, mucous membranes moist, no nasal congestion. No throat erythema or exudate. No uvular swelling. NECK: No stridor, no adenopathy, no meningismus, trachea is midline. LUNGS: Clear to auscultation bilaterally, no wheeze, no rhonchi, breath sounds equal. HEART: Without murmurs gallops or rubs, regular rate and rhythm. ABDOMEN: Soft, nontender, no peritonitis. EXTREMITIES: No cyanosis, full range of motion of all the joints without pain or difficulty. NEUROLOGIC: Oriented x 3, no acute motor or sensory deficits, no focal weakness. SKIN: No jaundice, no diaphoresis. DIFFERENTIAL DIAGNOSIS: Cervical abscess, allergic reaction, edema, uvular swelling, esophagitis, tracheitis, epiglottitis, pneumonia, among others. EMERGENCY DEPARTMENT PROCEDURES: MEDICAL DECISION MAKING: There is a normal white count, there is a normal hemoglobin and platelet count. No renal failure or significant electrolyte abnormality. No concerning liver enzyme elevation. Procalcitonin level is not elevated making serious bacterial infection less likely. The patient appeared to be in a euthyroid state. ECG shows a sinus bradycardia with some inverted T waves laterally. No ST elevation. Cardiac enzyme testing x 1 is not consistent with acute cardiac injury. Urinalysis does not show infection. Respiratory bio fire was completely negative. Chest x-ray shows diffuse parenchymal congestion consistent with pneumonia. Chest CT shows the same findings, the previous findings related to her cancer were also seen. Soft tissue neck CT does not show any abscess or airway narrowing. On exam, the patient was not hypoxic or toxic. Her lungs were clear. The patient did receive 1 L of IV saline for hydration. She received IV Pepcid and IV Decadron. She was given IV ceftriaxone as antibiotic coverage. I did speak with pulmonology. The patient's findings could be consistent with a diffuse pneumonia and failed outpatient management, lung damage from her Keytruda was also considered a possibility. Given the findings, given the presumed failed outpatient management, further care in the hospital was felt warranted. The patient would benefit from a pulmonary consult and possibly a bronchoscopy. I spoke with the patient and case management, the on-call hospitalist was consulted. Prior/Outside records/notes reviewed: Surgical note from 02/09/2023 discussing the use of her port as well as her recent diagnosis of pneumonia. ECG per my interpretation: Indication was shortness of breath. The ECG shows a sinus bradycardia with a rate of 56. There are some inverted T waves noted laterally. There is no ST elevation, no PVCs. The QTc is 449. Compared to an ECG from 27 January 2023, the anterior T wave changes are more pronounced. Continuous Cardiac Monitoring per my interpretation: An order was placed for continuous cardiac monitoring. The monitor shows a rate of 57 with sinus bradycardia. Imaging/x-ray results per my interpretation: Chest x-ray shows bilateral multifocal opacities consistent with potential diffuse pneumonia. No pneumothorax. Chronic Medical/Social conditions affecting care: Lung cancer Care/Management discussed with: Case management, the on-call hospitalist. Pulmonary-Dr. Cao. Level of care consideration(s): After review of the information above and other included data: --I believe the patient requires escalation of care to admission DISPOSITION: Admission with a pulmonary consult Past Med/Surg History Medical History Hypothyroidism History of anemia Back pain COPD (chronic obstructive pulmonary disease) with chronic bronchitis Stage IV adenocarcinoma of lung Dx'ed 05/2022- immunotherapy every 6 weeks, [place] [facility], next treatment 01/27/2023 Portal hypertensive gastropathy per Endoscopy (09/2020) Anxiety Liver cirrhosis Hepatitis C hx of, treated, no longer has Diabetes metformin daily Asthma inhaler daily/prn GERD (gastroesophageal reflux disease) Surgical History Port-A-Cath in place (01/26/23) Insertion Access Port (Left Subclavian) with Fluoroscopy(Left) - Vivian Giles DO H/O lymph node biopsy History of lung biopsy Hx of colonoscopy History of esophagogastroduodenoscopy (EGD) History of breast biopsy x2---both benign History of lumbar surgery (~05/30/17) laminectomy/discectomy L5-S1 History of tooth extraction History of cholecystectomy History of appendectomy Family History Mother Myocardial infarction Diabetes Heart disease Stroke Father Myocardial infarction Diabetes Heart disease Stroke Grandfather Cancer Uncle Cancer Other Asthma Hypertension No family history of adverse response to anesthesia No family history of bleeding disorder Denies family history of Ovarian cancer Prostate cancer Breast cancer Colorectal cancer Social History Smoking Status: Former smoker Tobacco Type: Cigarettes Age Started Using Tobacco: 10; Age Quit Using Tobacco: 56; packs per day: 1; Cigarettes Per Day: 46 year smoking history 1ppd; Second Hand Exposure: Yes (childhood); Do You Dip or Chew Tobacco: No; Hx Alcohol Use: No Hx Substance Use: No Preferred Language: Irish Communication Ability: Effective Visual Impairment: No Limitations Tow Bar Driver Required: No Beliefs That Will Affect Care: None marital status: Current Living Situation: Spouse current occupational status: employed 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 How many Children do You have: 0 Feels Safe at Home: Yes Childhood Exposure to Second-Hand Smoke: Yes Diet: diabetic and regular caffeine: Yes Dental Care, Regularly: No Physical Activity Frequency: Does not Exercise Seatbelt Use: always Sunscreen Use: No Assistive Devices: Denture - Upper and Glasses Allergies Allergies Allergy/AdvReac Type Severity Reaction Status Date / Time No Known Allergies Allergy Verified 02/09/23 10:45 Home Meds Home Medications Medication Instructions Recorded Confirmed diclofenac sodium 3 % topical gel 1 applic topical BID PRN Pain 05/20/22 03/14/23 levothyroxine 50 mcg capsule 50 mcg PO QAM 01/05/23 03/14/23 pantoprazole 40 mg tablet,delayed 40 mg PO QPM 01/19/23 03/14/23 release Previous Rx's Medication Instructions Recorded albuterol sulfate 90 mcg/actuation 2 inh inhalation QID PRN shortness 03/25/22 aerosol inhaler (ProAir HFA) of breath or wheezing #8.5 grams cyclobenzaprine 10 mg tablet 10 mg PO TID PRN muscle spasm #30 08/17/22 tabs lorazepam 0.5 mg tablet 0.5 mg PO TID PRN anxiety #90 tabs 08/17/22 fluticasone furoate 100 1 inh inhalation QAM #180 ea 10/13/22 mcg-vilanterol 25 mcg/dose inhalation powder (Breo Ellipta) metformin 500 mg tablet,extended 1,000 mg (2 x 500 mg) PO QAM #180 12/10/22 release 24 hr tabs Results & Data (ED) Vital Signs Vital Signs - 24 hr 03/14/23 06:59 03/14/23 07:16 03/14/23 08:01 Temperature 36.8 C Temperature Source Temporal Artery Scan Pulse Rate 68 Pulse Rate [Left Apical] Pulse Rate from SpO2 Sensor Pulse Rhythm [Left Apical] Pulse Strength [Left Apical] Respiratory Rate 18 Respiratory Effort / Characteristics Non-Labored Spontaneous Respiratory Depth Normal Respiratory Pattern Regular Blood Pressure 154/84 H 158/73 H Blood Pressure Mean 107 105 Blood Pressure Position Sitting Pulse Oximetry 94 Oxygen Delivery Method Room Air Room Air Oxygen Flow Rate Sepsis Recent Fever Within 48 Hours No Sepsis New/Unexplained Change in Mental Status No Sepsis Action Taken by Nursing No Action Required 03/14/23 08:01 03/14/23 08:15 03/14/23 08:30 Temperature Temperature Source Pulse Rate 60 57 L 54 L Pulse Rate [Left Apical] Pulse Rate from SpO2 Sensor Pulse Rhythm [Left Apical] Pulse Strength [Left Apical] Respiratory Rate 16 20 Respiratory Effort / Characteristics Respiratory Depth Respiratory Pattern Blood Pressure Blood Pressure Mean Blood Pressure Position Pulse Oximetry 94 87 L Oxygen Delivery Method Room Air Room Air Oxygen Flow Rate Sepsis Recent Fever Within 48 Hours Sepsis New/Unexplained Change in Mental Status Sepsis Action Taken by Nursing 03/14/23 08:31 03/14/23 08:31 03/14/23 09:00 Temperature Temperature Source Pulse Rate 59 L Pulse Rate [Left Apical] Pulse Rate from SpO2 Sensor 60 Pulse Rhythm [Left Apical] Pulse Strength [Left Apical] Respiratory Rate 16 Respiratory Effort / Characteristics Respiratory Depth Respiratory Pattern Blood Pressure 151/73 H 150/89 H Blood Pressure Mean 104 104 Blood Pressure Position Pulse Oximetry 85 L Oxygen Delivery Method Oxygen Flow Rate Sepsis Recent Fever Within 48 Hours Sepsis New/Unexplained Change in Mental Status Sepsis Action Taken by Nursing 03/14/23 09:00 03/14/23 09:30 03/14/23 09:30 Temperature Temperature Source Pulse Rate 66 59 L Pulse Rate [Left Apical] Pulse Rate from SpO2 Sensor Pulse Rhythm [Left Apical] Pulse Strength [Left Apical] Respiratory Rate 15 19 Respiratory Effort / Characteristics Respiratory Depth Respiratory Pattern Blood Pressure 142/78 H Blood Pressure Mean 123 Blood Pressure Position Pulse Oximetry 93 87 L Oxygen Delivery Method Room Air Oxygen Flow Rate Sepsis Recent Fever Within 48 Hours Sepsis New/Unexplained Change in Mental Status Sepsis Action Taken by Nursing 03/14/23 10:00 03/14/23 10:00 03/14/23 10:42 Temperature Temperature Source Pulse Rate 59 L Pulse Rate [Left Apical] 57 L Pulse Rate from SpO2 Sensor Pulse Rhythm [Left Apical] Regular Pulse Strength [Left Apical] Normal Respiratory Rate 25 H 16 Respiratory Effort / Characteristics Non-Labored Spontaneous Respiratory Depth Normal Respiratory Pattern Blood Pressure 141/72 H Blood Pressure Mean 92 Blood Pressure Position Pulse Oximetry 94 98 Oxygen Delivery Method Nasal Cannula Oxygen Flow Rate 2 Sepsis Recent Fever Within 48 Hours Sepsis New/Unexplained Change in Mental Status Sepsis Action Taken by Nursing 03/14/23 12:18 Temperature Temperature Source Pulse Rate 57 L Pulse Rate [Left Apical] Pulse Rate from SpO2 Sensor Pulse Rhythm [Left Apical] Pulse Strength [Left Apical] Respiratory Rate Respiratory Effort / Characteristics Respiratory Depth Respiratory Pattern Blood Pressure Blood Pressure Mean Blood Pressure Position Pulse Oximetry Oxygen Delivery Method Oxygen Flow Rate Sepsis Recent Fever Within 48 Hours Sepsis New/Unexplained Change in Mental Status Sepsis Action Taken by Retirement Medications Current Medication List: was personally reviewed by me Laboratory Data Attestation: I reviewed the patient's lab results. 03/14/23 08:06 03/14/23 08:06 Lab Results 03/14/23 03/14/23 03/14/23 Range/Units 08:06 10:20 10:48 WBC 8.56 (4.8-10.8) K/ul RBC 5.10 (4.20-5.40) M/uL Hgb 15.0 (12.0-16.0) g/dl Hct 44.7 (37.0-47.0) % MCV 87.6 (80.0-100.0) fL MCH 29.4 (25.0-34.0) pg MCHC 33.6 (32.0-36.0) g/dL RDW Std Deviation 41.8 (36.4-46.3) fL RDW Coeff of Ann-Marie 13.0 (11.5-14.5) % Plt Count 206 (130-400) K/uL MPV 10.8 (9.4-12.4) fL Immature Gran % (Auto) 0.4 % Neut % (Auto) 60.6 % Lymph % (Auto) 28.6 % Sibley % (Auto) 7.8 % Eos % (Auto) 1.8 % Baso % (Auto) 0.8 % Neut # (Auto) 5.19 (1.40-6.50) K/uL Lymph # (Auto) 2.45 (1.20-3.40) K/uL Sibley # (Auto) 0.67 H (0.11-0.59) K/uL Eos # (Auto) 0.15 (0.00-0.50) K/uL Baso # (Auto) 0.07 (0.00-0.20) K/uL Immature Gran # (Auto) 0.03 (0.01-0.20) K/uL Sodium 140 (136-145) mmol/L Potassium 3.7 (3.5-5.1) mmol/L Chloride 106 (98-107) mmol/L Carbon Dioxide 25 (21-32) mmol/L Anion Gap 9 (3-11) BUN 11 (6-23) mg/dl Creatinine 0.83 (0.6-1.2) mg/dl Est Cr Clr Drug Dosing 80.0 ml/min Est GFR ( Amer) 89.5 ml/min Est GFR (Non-Af Amer) 77.2 ml/min BUN/Creatinine Ratio 13.3 (10-20) Glucose 103 H (70-99(Fasting)) mg/dl Calcium 8.8 (8.6-10.3) mg/dl Magnesium 1.8 (1.7-2.4) mg/dl Total Bilirubin 0.8 (0.2-1.0) mg/dl AST 26 (13-39) U/L ALT 25 (7-52) U/L Alkaline Phosphatase 51 (34-104) U/L Troponin I High Sens 4.0 (0-14) pg/ml Total Protein 6.7 (6.0-8.3) gm/dl Albumin 3.9 (3.4-5.0) gm/dl Globulin 2.8 (2.5-4.0) gm/dl Albumin/Globulin Ratio 1.4 (0.9-2) Procalcitonin (0-0.5) ng/ml TSH 3.610 (0.300-4.500) uIu/ml Urine Color Yellow Urine Appearance Clear (Clear) Urine pH 5.5 (4.5-7.5) Ur Specific Mora 1.014 (1.000-1.030) Urine Protein Negative (Negative) Urine Glucose (UA) Negative (Negative) Urine Ketones Negative (Negative) Urine Blood Negative (Negative) Urine Nitrite Negative (Negative) Urine Bilirubin Negative (Negative) Urine Urobilinogen Negative (Negative) Ur Leukocyte Esterase Negative (Negative) Adenovirus (PCR) Not Detected (NotDetected) B. pertussis DNA (PCR) Not Detected (NotDetected) B.parapertussis DNA PCR Not Detected (NotDetected) C. pneumoniae DNA (PCR) Not Detected (NotDetected) Coronavirus OC43 (PCR) Not Detected (NotDetected) Coronavirus HKU1 (PCR) Not Detected (NotDetected) Coronavirus 229E (PCR) Not Detected (NotDetected) SARS-CoV-2 (PCR) Not Detected (NotDetected) Coronavirus NL63 (PCR) Not Detected (NotDetected) Human Metapneumovir PCR Not Detected (NotDetected) Influenza Type A (PCR) Not Detected (NotDetected) Influenza Type B (PCR) Not Detected (NotDetected) M. pneumoniae (PCR) Not Detected (NotDetected) Parainfluenza 1 (PCR) Not Detected (NotDetected) Parainfluenza 2 (PCR) Not Detected (NotDetected) Parainfluenza 3 (PCR) Not Detected (NotDetected) Parainfluenza 4 (PCR) Not Detected (NotDetected) RSV (PCR) Not Detected (NotDetected) Entero/Rhino (PCR) Not Detected (NotDetected) 03/14/23 Range/Units 12:17 WBC (4.8-10.8) K/ul RBC (4.20-5.40) M/uL Hgb (12.0-16.0) g/dl Hct (37.0-47.0) % MCV (80.0-100.0) fL MCH (25.0-34.0) pg MCHC (32.0-36.0) g/dL RDW Std Deviation (36.4-46.3) fL RDW Coeff of Ann-Marie (11.5-14.5) % Plt Count (130-400) K/uL MPV (9.4-12.4) fL Immature Gran % (Auto) % Neut % (Auto) % Lymph % (Auto) % Sibley % (Auto) % Eos % (Auto) % Baso % (Auto) % Neut # (Auto) (1.40-6.50) K/uL Lymph # (Auto) (1.20-3.40) K/uL Sibley # (Auto) (0.11-0.59) K/uL Eos # (Auto) (0.00-0.50) K/uL Baso # (Auto) (0.00-0.20) K/uL Immature Gran # (Auto) (0.01-0.20) K/uL Sodium (136-145) mmol/L Potassium (3.5-5.1) mmol/L Chloride (98-107) mmol/L Carbon Dioxide (21-32) mmol/L Anion Gap (3-11) BUN (6-23) mg/dl Creatinine (0.6-1.2) mg/dl Est Cr Clr Drug Dosing ml/min Est GFR ( Amer) ml/min Est GFR (Non-Af Amer) ml/min BUN/Creatinine Ratio (10-20) Glucose (70-99(Fasting)) mg/dl Calcium (8.6-10.3) mg/dl Magnesium (1.7-2.4) mg/dl Total Bilirubin (0.2-1.0) mg/dl AST (13-39) U/L ALT (7-52) U/L Alkaline Phosphatase (34-104) U/L Troponin I High Sens (0-14) pg/ml Total Protein (6.0-8.3) gm/dl Albumin (3.4-5.0) gm/dl Globulin (2.5-4.0) gm/dl Albumin/Globulin Ratio (0.9-2) Procalcitonin < 0.05 (0-0.5) ng/ml TSH (0.300-4.500) uIu/ml Urine Color Urine Appearance (Clear) Urine pH (4.5-7.5) Ur Specific Mora (1.000-1.030) Urine Protein (Negative) Urine Glucose (UA) (Negative) Urine Ketones (Negative) Urine Blood (Negative) Urine Nitrite (Negative) Urine Bilirubin (Negative) Urine Urobilinogen (Negative) Ur Leukocyte Esterase (Negative) Adenovirus (PCR) (NotDetected) B. pertussis DNA (PCR) (NotDetected) B.parapertussis DNA PCR (NotDetected) C. pneumoniae DNA (PCR) (NotDetected) Coronavirus OC43 (PCR) (NotDetected) Coronavirus HKU1 (PCR) (NotDetected) Coronavirus 229E (PCR) (NotDetected) SARS-CoV-2 (PCR) (NotDetected) Coronavirus NL63 (PCR) (NotDetected) Human Metapneumovir PCR (NotDetected) Influenza Type A (PCR) (NotDetected) Influenza Type B (PCR) (NotDetected) M. pneumoniae (PCR) (NotDetected) Parainfluenza 1 (PCR) (NotDetected) Parainfluenza 2 (PCR) (NotDetected) Parainfluenza 3 (PCR) (NotDetected) Parainfluenza 4 (PCR) (NotDetected) RSV (PCR) (NotDetected) Entero/Rhino (PCR) (NotDetected) Administered Medications Doxycycline Hyclate 100 mg/ (Dextrose) 100 mls @ 50 mls/hr IV NOW STA Stop: 03/14/23 15:06 Last Admin: 03/14/23 14:11 Dose: 50 mls/hr Documented By: MARQUISE Discontinued Medications Dexamethasone Sodium Phosphate (DexamethasonePf 10 Mg/Ml Vial) 10 mg IV NOW ONE Stop: 03/14/23 12:01 Last Admin: 03/14/23 12:38 Dose: 10 mg Documented By: AMOS Sodium Chloride (Nss) 1,000 mls @ 999 mls/hr IV .Q1H1M ONE Stop: 03/14/23 08:15 Last Infusion: 03/14/23 09:32 Dose: Infused Documented By: Admin: 03/14/23 08:12 Dose: 999 mls/hr Documented By: FRANCISCO Famotidine (Pepcid 20mg Iv Push) 20 mg in 5 mls @ 2.5 mls/min IV NOW STA Stop: 03/14/23 07:16 Last Admin: 03/14/23 08:12 Dose: 2.5 mls/min Documented By: FRANCISCO Ceftriaxone Sodium (Rocephin) 2,000 mg in 50 mls @ 100 mls/hr IV NOW STA Stop: 03/14/23 12:29 Last Infusion: 03/14/23 13:35 Dose: Infused Documented By: Admin: 03/14/23 12:39 Dose: 100 mls/hr Documented By: AMOS Cefepime HCl 2,000 mg/ Syringe 20 mls @ 5 mls/min IV 1300 ONE; Protocol Stop: 03/14/23 13:03 Last Admin: 03/14/23 13:27 Dose: 5 mls/min Documented By: AMOS Ioversol (Optiray 320 500ml) 83 ml IV ONCE ONE Stop: 03/14/23 11:04 Last Admin: 03/14/23 11:05 Dose: 83 ml Documented By: BA Lorazepam (Lorazepam 0.5 Mg Tab) 0.5 mg PO NOW STA Stop: 03/14/23 12:37 Last Admin: 03/14/23 13:28 Dose: 0.5 mg Documented By: AMOS Ondansetron HCl (Ondansetron Inj 2 Mg/Ml 2 Ml Vial) 4 mg IV NOW STA Stop: 03/14/23 07:16 Last Admin: 03/14/23 08:13 Dose: 4 mg Documented By: FRANCISCO Imaging Data Radiologist's Impression: Soft Tissue Neck CT 03/14/23 07:15 CT OF THE NECK WITH IV CONTRAST CLINICAL HISTORY: Possible narrowing or abscess, hard to swallow, shortness of breath. Lung cancer. COMPARISON STUDY: PET/CT November 18, 2022. MRI of the brain December 10, 2022. TECHNIQUE: Following IV administration of 83 mL of Optiray, helical axial images of the neck were obtained. Sagittal and coronal reconstructions were viewed. Automated exposure control was utilized for the study. A dose lowering technique was utilized adhering to the principles of ALARA. FINDINGS: Visualized portions of the intracranial contents are unremarkable. Major vasculature of the neck is patent. The sinuses and mastoid air cells are clear. The epiglottis is normal. Visualized portions of the airway are patent. There is no fluid collection within the neck to suggest an abscess. The previously biopsied right posterior cervical lymph node on image 89 of 483 has continued to decrease in size. This now measures 0.9 x 0.8 cm. This measured 1 x 1 cm on PET/CT of December 08, 2022. No enlarged cervical lymph nodes are present. Prominent clustered left supraclavicular lymph nodes are likely benign. These measure up to 7 mm in short axis diameter. Small right lobe thyroid nodule is unchanged. Multifocal airspace opacities within the visualized lung apices are present. These are better depicted on chest CT which will be reported separately. A left subclavian Vpadxd-[id number]-Isla is in place. IMPRESSION: 1. No acute process within the neck. No fluid collection to suggest abscess. Patent airway. 2. Continued decrease in size of the previously biopsied right posterior cervical lymph node. No pathologically enlarged cervical lymph nodes. 3. Multifocal airspace opacities within the lungs, better depicted on the chest CT. Please see that report for further discussion. ACT 112: Negative or not required by law. Electronically signed by: Arnel Rowe M.D. 03/14/2023 11:20 AM Chest X-Ray 03/14/23 07:16 XR chest 1V portable CLINICAL HISTORY: Weakness. Lung cancer. COMPARISON STUDY: Chest CT January 10, 2023. PET/CT December 08, 2022. FINDINGS: A left subclavian [id number] is in place. There is no pneumothorax or pleural effusion. Cardiomediastinal silhouette is stable. The known left lower lobe mass is partially obscured on this examination. Multifocal airspace opacities within the lungs are similar to chest radiograph of March 08, 2023. IMPRESSION: 1. No significant change in multifocal airspace opacities within the lungs. The findings favor pneumonia. Radiographic follow up to ensure resolution is recommended. 2. Left lower lobe mass, better depicted on prior chest CT and PET/CT. ACT 112: Negative or not required by law. Electronically signed by: Arnel Rowe M.D. 03/14/2023 7:[address] 03/14/23 07:39 CT OF THE CHEST WITH IV CONTRAST CLINICAL HISTORY: lung cancer, sob, recent pneumonia diagnosis COMPARISON STUDY: Chest radiographs March 08, 2023 and March 14, 2023. Chest CT January 10, 2023. TECHNIQUE: Following IV administration of 83 mL of Optiray, helical axial images of the chest were obtained. Sagittal and coronal reconstructions were viewed as well as maximal intensity projections on an independent 3-D workstation. Automated exposure control was utilized for the study. A dose lowering technique was utilized adhering to the principles of ALARA. CT DOSE: 1316.97 mGy.cm FINDINGS: No enlarged axillary, mediastinal or hilar lymph nodes are present. Size of the heart is normal. No central pulmonary emboli are identified. There is no pericardial effusion. No thoracic aortic dissection. Left subclavian Ejldwm-[id number]-Kcow is in place. The previously described 4 x 2.9 cm left lower lobe mass on image 120 of 253 has mildly decreased in size since CT of January 10, 2023 when it measured 4.7 x 3.2 cm. A 4 mm right lower lobe nodule on image 140 remains unchanged. The small groundglass left upper lobe nodule shown on prior exam is obscured by multifocal airspace opacities which have developed since chest CT January 10, 2023. These were shown on radiographs of March 08, 2023 and March 14, 2023. There is no cavitation. Central airways are patent. There is no pneumothorax or pleural effusion. No suspicious lesions within the bony thorax. The liver is cirrhotic appearing. This is unchanged. The gallbladder is surgically absent. Suspected subcentimeter left hepatic lobe cyst is unchanged. IMPRESSION: 1. Multifocal airspace opacities throughout the lungs, new since chest CT of January 10, 2023. These were shown on radiographs of March 08, 2023. The findings may reflect an infectious etiology such as multifocal pneumonia. However, other etiologies such as treatment related pneumonitis in the correct clinical setting could appear similar. 2. Slight decrease in size of the primary left lower lobe mass. 3. No thoracic lymphadenopathy. ACT 112: Negative or not required by law. Electronically signed by: Arnel Rowe M.D. 03/14/2023 11:34 AM Discharge Plan Visit Data Chief Complaint: Sore Throat Stated Complaint: anxiety ED Provider: [place] Discharge Problem: SOB (shortness of breath), Lung cancer, Chest tightness, Throat tightness, Abnormal chest CT, Failure of outpatient treatment Patient Disposition: Admitted As Inpatient Condition: Fair Discharge Instructions Interventions: ED Discharge Assessment Last Done: 03/14/23 14:18 Discharge Problem: Lung cancer Qualifiers: Laterality: unspecified laterality Lung location: unspecified part of lung Q ualified Code(s): C34.90 - Malignant neoplasm of unspecified part of unspecified bronchus or lung
--- NOTE | 2023-03-14 07:50 | XRay Report ---
XR chest 1V portable CLINICAL HISTORY: Weakness. Lung cancer. COMPARISON STUDY: Chest CT January 10, 2023. PET/CT December 08, 2022. FINDINGS: A left subclavian Pdydlm-k-Diof is in place. There is no pneumothorax or pleural effusion. Cardiomediastinal silhouette is stable. The known left lower lobe mass is partially obscured on this examination. Multifocal airspace opacities within the lungs are similar to chest radiograph of [facility] 2022. IMPRESSION: 1. No significant change in multifocal airspace opacities within the lungs. The findings favor pneumo juan miguel. Radiographic follow up to ensure resolution is recommended. 2. Left lower lobe mass, better depicted on prior chest CT and PET/CT. ACT 112: Negative or not required by law. Electronically signed by: Arnel Rowe M.D. 03/14/2023 7:49 AM
[2023-03-14 08:31] LABS: Basophils # (auto) 0.07 K/uL (0.00-0.20); Basophils % (auto) 0.8 %; Eosinophils # (auto) 0.15 K/uL (0.00-0.50); Eosinophils % (auto) 1.8 %; Hematocrit (blood only) 44.7 % (37.0-47.0); Immature Granulocytes # (auto) 0.03 K/uL (0.01-0.20); Immature Granulocytes % (auto) 0.4 %; Lymphocytes # (auto) 2.45 K/uL (1.20-3.40); Lymphocytes % (auto) 28.6 %; Mean Corpuscular Hemoglobin 29.4 pg (25.0-34.0); Mean Corpuscular Hgb Conc 33.6 g/dL (32.0-36.0); Mean Corpuscular Volume 87.6 fL (80.0-100.0); Mean Platelet Volume 10.8 fL (9.4-12.4); Monocytes # (auto) 0.67 K/uL (0.11-0.59); Monocytes % (auto) 7.8 %; Neutrophils # (auto) 5.19 K/uL (1.40-6.50); Neutrophils % (auto) 60.6 %; Platelet Count 206 K/uL (130-400); RDW Standard Deviation 41.8 fL (36.4-46.3); White Blood Count 8.56 K/ul (4.8-10.8)
[2023-03-14 08:40] LABS: Albumin Globulin Ratio 1.4 (0.9-2); Albumin Level 3.9 gm/dl (3.4-5.0); BUN Creatinine Ratio 13.3 (10-20); Bilirubin,Total 0.8 mg/dl (0.2-1.0); Calcium 8.8 mg/dl (8.6-10.3); Est GFR (African American) 89.5 ml/min; Est GFR (Non-African American) 77.2 ml/min; Globulin 2.8 gm/dl (2.5-4.0); Magnesium 1.8 mg/dl (1.7-2.4); Potassium 3.7 mmol/L (3.5-5.1); Total Protein 6.7 gm/dl (6.0-8.3)
[2023-03-14 08:54] LABS: Thyroid Stimulating Hormone 3.61 uIu/ml (0.300-4.500)
[2023-03-14 11:02] LABS: Appearance Urine Clear (Clear); Bilirubin Urine Negative (Negative); Blood Urine Negative (Negative); Color Urine Yellow; Glucose Urine UA Negative (Negative); Ketones Urine Negative (Negative); Leukocyte Esterase Urine Negative (Negative); Nitrite Urine Negative (Negative); Protein Urine Negative (Negative); Specific Gravity Urine 1.014 (1.000-1.030); Urobilinogen Urine Negative (Negative); pH Urine 5.5 (4.5-7.5)
[2023-03-14] MEDS ORDERED: OPTIRAY 320 500ml IV ONE (11:03)
--- NOTE | 2023-03-14 11:23 | CT Scan Report ---
CT OF THE NECK WITH IV CONTRAST CLINICAL HISTORY: Possible narrowing or abscess, hard to swallow, shortness of breath. Lung cancer. COMPARISON STUDY: PET/CT November 18, 2022. MRI of the brain December 10, 2022. TECHNIQUE: Following IV administration of 83 mL of Optiray, helical axial images of the neck were ob tained. Sagittal and coronal reconstructions were viewed. Automated exposure control was utilized f or the study. A dose lowering technique was utilized adhering to the principles of ALARA. FINDINGS: Visualized portions of the intracranial contents are unremarkable. Major vasculature of th e neck is patent. The sinuses and mastoid air cells are clear. The epiglottis is normal. Visualized p ortions of the airway are patent. There is no fluid collection within the neck to suggest an abscess. The previously biopsied right posterior cervical lymph node on image 89 of 483 has continued to decr ease in size. This now measures 0.9 x 0.8 cm. This measured 1 x 1 cm on PET/CT of December 08, 2022. No enlarged cervical lymph nodes are present. Prominent clustered left supraclavicular lymph nodes a re likely benign. These measure up to 7 mm in short axis diameter. Small right lobe thyroid nodule is unchanged. Multifocal airspace opacities within the visualized lung apices are present. These are be tter depicted on chest CT which will be reported separately. A left subclavian Seuhvx-e-Ttge is in pl [place]. IMPRESSION: 1. No acute process within the neck. No fluid collection to suggest abscess. Patent airway. 2. Continued decrease in size of the previously biopsied right posterior cervical lymph node. No path ologically enlarged cervical lymph nodes. 3. Multifocal airspace opacities within the lungs, better depicted on the chest CT. Please see that r eport for further discussion. ACT 112: Negative or not required by law. Electronically signed by: Arnel Rowe M.D. 03/14/2023 11:20 AM
[2023-03-14 11:36] LABS: Adenovirus PCR Not Detected (NotDetected); Bordetella parapertussis PCR Not Detected (NotDetected); Bordetella pertussis PCR Not Detected (NotDetected); Chlamydia pneumoniae PCR Not Detected (NotDetected); Coronavirus 229E PCR Not Detected (NotDetected); Coronavirus CoV-2 (COVID19)PCR Not Detected (NotDetected); Coronavirus HKU1 PCR Not Detected (NotDetected); Coronavirus NL63 PCR Not Detected (NotDetected); Coronavirus OC43PCR Not Detected (NotDetected); Human Metapneumovirus PCR Not Detected (NotDetected); Influenza A PCR Not Detected (NotDetected); Influenza B PCR Not Detected (NotDetected); Mycoplasma pneumoniae PCR Not Detected (NotDetected); Parainfluenza Virus 1 PCR Not Detected (NotDetected); Parainfluenza Virus 2 PCR Not Detected (NotDetected); Parainfluenza Virus 3 PCR Not Detected (NotDetected); Parainfluenza Virus 4 PCR Not Detected (NotDetected); Respiratory Syncytial VirusPCR Not Detected (NotDetected); Rhinovirus/Enterovirus PCR Not Detected (NotDetected)
--- NOTE | 2023-03-14 11:36 | CT Scan Report ---
CT OF THE CHEST WITH IV CONTRAST CLINICAL HISTORY: lung cancer, sob, recent pneumonia diagnosis COMPARISON STUDY: Chest radiographs March 08, 2023 and March 14, 2023. Chest CT January 10, 2023 . TECHNIQUE: Following IV administration of 83 mL of Optiray, helical axial images of the chest were o btained. Sagittal and coronal reconstructions were viewed as well as maximal intensity projections o n an independent 3-D workstation. Automated exposure control was utilized for the study. A dose low ering technique was utilized adhering to the principles of ALARA. CT DOSE: 1316.97 mGy.cm FINDINGS: No enlarged axillary, mediastinal or hilar lymph nodes are present. Size of the heart is n ormal. No central pulmonary emboli are identified. There is no pericardial effusion. No thoracic aort ic dissection. Left subclavian Wymsdp-z-Yrnx is in place. The previously described 4 x 2.9 cm left lo wer lobe mass on image 120 of 253 has mildly decreased in size since CT of January 10, 2023 when it m easured 4.7 x 3.2 cm. A 4 mm right lower lobe nodule on image 140 remains unchanged. The small ground glass left upper lobe nodule shown on prior exam is obscured by multifocal airspace opacities which h ave developed since chest CT January 10, 2023. These were shown on radiographs of March 08, 2023 a nd March 14, 2023. There is no cavitation. Central airways are patent. There is no pneumothorax or p leural effusion. No suspicious lesions within the bony thorax. The liver is cirrhotic appearing. This is unchanged. The gallbladder is surgically absent. Suspected subcentimeter left hepatic lobe cyst i s unchanged. IMPRESSION: 1. Multifocal airspace opacities throughout the lungs, new since chest CT of January 10, 2023. These were shown on radiographs of March 08, 2023. The findings may reflect an infectious etiology such as multifocal pneumonia. However, other etiologies such as treatment related pneumonitis in the corre ct clinical setting could appear similar. 2. Slight decrease in size of the primary left lower lobe mass. 3. No thoracic lymphadenopathy. ACT 112: Negative or not required by law. Electronically signed by: Arnel Rowe M.D. 03/14/2023 11:34 AM
[2023-03-14] MEDS ORDERED: cefTRIAXone SODIUM 2,000 MG/50 ML BAG IV STA (12:00)
[2023-03-14] MEDS ORDERED: dexAMETHasone**PF** 10 MG/ML VIAL IV ONE (12:00)
--- NOTE | 2023-03-14 12:16 | History & Physical Report ---
Date of Service March 14, 2023 Assessment & Plan (1) Hypoxia: Plan: -Admit to med/tele on pulse oximetry -Currently stable on 2L NC -Presented to the [facility] ED today with complaints of a sensation of her throat closing and increased anxiety -Noted to be hypoxic at 85% on RA but not in respiratory distress -Soft tissue CT of the neck w/IV con is negative for acute findings -Chest xray and CT of the chest with IV con show findings suggestive of possible multifocal pna vs pneumonitis -ED staff spoke with Dr. Cao, I spoke with him as well at the time of admission, recs below: >Start Cefepime, will add Doxycycline for now as she just completed a course of azithromycin >Obtain MRSA Swab >Continue systemic steroids >He will evaluate for possible bronchoscopy >Findings could be associated with multifocal pna vs Keytruda Pneumonitis -S/P one dose of ceftriaxone in the ED, we will start q8h Cefepime -S/O 10 mg IV dexamethasone in the ED, will continue with 40 mg IV BID17 solu- medrol for now -Blood cultures obtained in the ED, will obtain sputum culture with gram stain as well -Continue prn O2 to keep SpO2 between 89-92% -Continue home breathing treatments, patient is not currently wheezy on exam -Incentive spirometry, flutter therapy, BID Guaifenesin -BL SCD's for DVT PPX with possible bronch tomorrow -HH/DMII diet -AM CBC, BHMP, mag, PT/INR (2) Hypothyroidism (acquired): Plan: -Continue levothyroxine (3) COPD (chronic obstructive pulmonary disease) with chronic bronchitis: Plan: -Does not appear to be in a a COPD exacerbation at this time as she is without increased cough, sputum production and is not wheezing on exam -Rest of care per hypxia plan (4) Stage IV adenocarcinoma of lung: Plan: -Current receiving Keytruda infusions -Continue to follow with Dr. Wolf (5) Diabetes: Plan: -Hold metformin -Monitor BSG ACHS, goal is 110-160 while on IV steroids -Will start 5 units lantus BID and CF 50 ACHS for now -HH/DMII diet -Pharmacy glycemic consult placed (6) Liver cirrhosis: Plan: -LFT's are WNL -No signs of hepatic encephalopathy -Euvolemic -Conitue to monitor (7) GERD (gastroesophageal reflux disease): Plan: -Continue daily PPI (8) Anxiety: Plan: -Continue prn Ativan Plan The patient was discussed with Dr. 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 She was found to be hypoxic on RA at 85%, bradycardic at 57 bpm, but otherwise stable. Labs including CBC, CMP, high sen trop, UA, and full reparatory biofire were unremarkable. Chest xray was read as "1. No significant change in multifocal airspace opacities within the lungs. The findings favor pneumonia. Radiographic follow up to ensure resolution is recommended. 2. Left lower lobe mass, better depicted on prior chest CT and PET /CT.". Soft tissue CT of the neck w/IV con was read as "1. No acute process within the neck. No fluid collection to suggest abscess. Patent airway. 2. Continued decrease in size of the previously biopsied right posterior cervical lymph node. No pathologically enlarged cervical lymph nodes. 3. Multifocal airspace opacities within the lungs, better depicted on the chest CT. Please see that report for further discussion.". And CT of the chest w/IV con was read as "1. Multifocal airspace opacities throughout the lungs, new since chest CT of January 10, 2023. These were shown on radiographs of March 08, 2023. The findings may reflect an infectious etiology such as multifocal pneumonia. However, other etiologies such as treatment related pneumonitis in the correct clinical setting could appear similar. 2. Slight decrease in size of the primary left lower lobe mass. 3. No thoracic lymphadenopathy.". Prior to admission the patient was given 10 mg IV dexamethasone, a dose of Ceftriaxone, 1L NSS, 4 mg IV zofran, and 20 mg IV famotidine. The ED staff spoke with Dr. Cao who recommended admission with IV abx and systemic steroids. He will likely perform a bronchoscopy during this admission. At the time of the exam the patient was sitting in bed in no acute distress with her sitting bedside. She states that for the past 2 months she has been experiencing increased SOB/MCHUGH. She recently completed a 5 day course of Azithromycin for possible pneumonia. She is still receiving Keytruda infusions and follows with Dr. Wolf. This am she woke and had the sensation that her thro at was swelling and had significant anxiety, prompting ED visit. She denies recent fever, chest pain, cough, hemoptysis, abd pain, nausea, vomiting, diarrhea, dysuria hematuria, melena, LE swelling, and recent trauma. She does not use home oxygen and quit smoking approximately 9 months ago. Her anxiety has improved but she still has the sensation of her throat feeling slightly swollen. She is a full code and would want her to make medical decisions for her if she cannot make them herself. Please refer to Dr. Shah's attestation for any changes to the treatment plan Allergies Allergy/AdvReac Type Severity Reaction Status Date / Time No Known Allergies Allergy Verified 02/09/23 10:45 Home Medications Medication Instructions Recorded Confirmed Type albuterol sulfate 90 mcg/actuation 2 inh inhalation QID PRN shortness 03/25/22 0 03/14/23 Rx aerosol inhaler (ProAir HFA) of breath or wheezing #8.5 grams diclofenac sodium 3 % topical gel 1 applic topical BID PRN Pain 05/20/22 03/14/23 History cyclobenzaprine 10 mg tablet 10 mg PO TID PRN muscle spasm #30 08/17/22 03/14/23 Rx tabs lorazepam 0.5 mg tablet 0.5 mg PO TID PRN anxiety #90 tabs 08/17/22 03/14/23 Rx fluticasone furoate 100 1 inh inhalation QAM #180 ea 10/13/22 03/14/23 Rx mcg-vilanterol 25 mcg/dose inhalation powder (Breo Ellipta) metformin 500 mg tablet,extended 1,000 mg (2 x 500 mg) PO QAM #180 12/10/22 03/14/23 Rx release 24 hr tabs levothyroxine 50 mcg capsule 50 mcg PO QAM 01/05/23 03/14/23 History pantoprazole 40 mg tablet,delayed 40 mg PO QPM 01/19/23 03/14/23 History release Past Med/Surg History Medical History Hypothyroidism History of anemia Back pain COPD (chronic obstructive pulmonary disease) with chronic bronchitis Stage IV adenocarcinoma of lung Dx'ed 05/2022- immunotherapy every 6 weeks, [place] [facility], next treatment 01/27/2023 Portal hypertensive gastropathy per Endoscopy (09/2020) Anxiety Liver cirrhosis Hepatitis C hx of, treated, no longer has Diabetes metformin daily Asthma inhaler daily/prn GERD (gastroesophageal reflux disease) Surgical History Port-A-Cath in place (01/26/23) Insertion Access Port (Left Subclavian) with Fluoroscopy(Left) - Vivian Giles DO H/O lymph node biopsy History of lung biopsy Hx of colonoscopy History of esophagogastroduodenoscopy (EGD) History of breast biopsy x2---both benign History of lumbar surgery (~05/30/17) laminectomy/discectomy L5-S1 History of tooth extraction History of cholecystectomy History of appendectomy Family History Mother Myocardial infarction Diabetes Heart disease Stroke Father Myocardial infarction Diabetes Heart disease Stroke Grandfather Cancer Uncle Cancer Other Asthma Hypertension No family history of adverse response to anesthesia No family history of bleeding disorder Denies family history of Ovarian cancer Prostate cancer Breast cancer Colorectal cancer Social History Smoking Status: Former smoker Tobacco Type: Cigarettes Age Started Using Tobacco: 10; Age Quit Using Tobacco: 56; packs per day: 1; Cigarettes Per Day: 46 year smoking history 1ppd; Second Hand Exposure: Yes (childhood); Do You Dip or Chew Tobacco: No; Hx Alcohol Use: No Hx Substance Use: No Preferred Language: German Communication Ability: Effective Visual Impairment: No Limitations Supervisor Asbestos Removal Required: No Beliefs That Will Affect Care: None marital status: Current Living Situation: Spouse current occupational status: employed 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 How many Children do You have: 0 Feels Safe at Home: Yes Childhood Exposure to Second-Hand Smoke: Yes Diet: diabetic and regular caffeine: Yes Dental Care, Regularly: No Physical Activity Frequency: Does not Exercise Seatbelt Use: always Sunscreen Use: No Assistive Devices: Denture - Upper and Glasses Physical Exam Physical Exam: Physical Exam: General: In no acute distress, stated age, well-nourished, non-toxic appearing HEENT: Normocephalic, atraumatic, no scleral icterus, pupils around round, symmetrical, and reactive to light, no signs of swelling or edema in the oropharynx, moist mucus membranes, trachea midline, no thyromegaly Chest/Pulm: mediport located in the left upper chest without signs of erythema or infection, No respiratory distress, no inspiratory stridor, symmetrical chest expansion, clear breath sounds throughout Cardiac: RRR, no murmurs noted Abdomen: Negative for ascites and bruising, normoactive bowel sounds, soft, non-tender to palpation throughout Musculoskeletal: Symmetrical and without signs of acute trauma, upper and lower extremities with full ROM, no atrophy, spasticity, or flaccidity Extremities: Radial, dorsalis pedis, and posterior tibial pulses are intact and symmetrical, no edema noted in the BL LE's Skin: Warm, dry, no rashes , lesions, or scars noted Neuro: Alert and oriented to person, place, month, year, and president, no focal defects, no tremors noted Psych: No acute distress, calm and cooperative during the exam Results & Data Results & Data Vital Signs (Past 12 Hours) Vital Signs Temp Pulse Pulse Resp BP Pulse Ox O2 Del Method 03/14/23 10:42 57 L 16 98 03/14/23 10:00 59 L 25 H 03/14/23 10:00 141/72 H 94 Nasal Cannula 03/14/23 09:30 59 L 19 87 L Room Air 03/14/23 09:30 142/78 H 03/14/23 09:00 66 15 93 03/14/23 09:00 150/89 H 03/14/23 08:31 59 L 16 85 L 03/14/23 08:31 151/73 H 03/14/23 08:30 54 L 20 87 L Room Air 03/14/23 08:15 57 L 03/14/23 08:01 60 16 94 Room Air 03/14/23 08:01 158/73 H 03/14/23 07:16 Room Air 03/14/23 06:59 36.8 C 68 18 154/84 H 94 Room Air O2 Flow Rate 03/14/23 10:42 03/14/23 10:00 03/14/23 10:00 2 03/14/23 09:30 03/14/23 09:30 03/14/23 09:00 03/14/23 09:00 03/14/23 08:31 03/14/23 08:31 03/14/23 08:30 03/14/23 08:15 03/14/23 08:01 03/14/23 08:01 03/14/23 07:16 03/14/23 06:59 Laboratory Results Abnormal lab results 03/14/23 Range/Units 08:06 [place] # (Auto) 0.67 H (0.11-0.59) K/uL Glucose 103 H (70-99(Fasting)) mg/dl Diagnostic Findings Soft Tissue Neck CT 03/14/23 07:15 CT OF THE NECK WITH IV CONTRAST CLINICAL HISTORY: Possible narrowing or abscess, hard to swallow, shortness of breath. Lung cancer. COMPARISON STUDY: PET/CT November 18, 2022. MRI of the brain December 10, 2022. TECHNIQUE: Following IV administration of 83 mL of Optiray, helical axial images of the neck were obtained. Sagittal and coronal reconstructions were viewed. Automated exposure control was utilized for the study. A dose lowering technique was utilized adhering to the principles of ALARA. FINDINGS: Visualized portions of the intracranial contents are unremarkable. Major vasculature of the neck is patent. The sinuses and mastoid air cells are clear. The epiglottis is normal. Visualized portions of the airway are patent. There is no fluid collection within the neck to suggest an abscess. The pre viously biopsied right posterior cervical lymph node on image 89 of 483 has continued to decrease in size. This now measures 0.9 x 0.8 cm. This measured 1 x 1 cm on PET/CT of December 08, 2022. No enlarged cervical lymph nodes are present. Prominent clustered left supraclavicular lymph nodes are likely benign. These measure up to 7 mm in short axis diameter. Small right lobe thyroid nodule is unchanged. Multifocal airspace opacities within the visualized lung apices are present. These are better depicted on chest CT which will be reported separately. A left subclavian Irflzy-s-Gifh is in place. IMPRESSION: 1. No acute process within the neck. No fluid collection to suggest abscess. Patent airway. 2. Continued decrease in size of the previously biopsied right posterior cervical lymph node. No pathologically enlarged cervical lymph nodes. 3. Multifocal airspace opacities within the lungs, better depicted on the chest CT. Please see that report for further discussion. ACT 112: Negative or not required by law. Electronically signed by: Arnel Rowe M.D. 03/14/2023 11:20 AM Chest X-Ray 03/14/23 07:16 XR chest 1V portable CLINICAL HISTORY: Weakness. Lung cancer. COMPARISON STUDY: Chest CT January 10, 2023. PET/CT December 08, 2022. FINDINGS: A left subclavian Isinqh-e-Yxyu is in place. There is no pneumothorax or pleural effusion. Cardiomediastinal silhouette is stable. The known left lower lobe mass is partially obscured on this examination. Multifocal airspace opacities within the lungs are similar to chest radiograph of March 08, 2023. IMPRESSION: 1. No significant change in multifocal airspace opacities within the lungs. The findings favor pneumonia. Radiographic follow up to ensure resolution is re commended. 2. Left lower lobe mass, better depicted on prior chest CT and PET/CT. ACT 112: Negative or not required by law. Electronically signed by: Arnel Rowe M.D. 03/14/2023 7:[address] 03/14/23 07:39 CT OF THE CHEST WITH IV CONTRAST CLINICAL HISTORY: lung cancer, sob, recent pneumonia diagnosis COMPARISON STUDY: Chest radiographs March 08, 2023 and March 14, 2023. Chest CT January 10, 2023. TECHNIQUE: Following IV administration of 83 mL of Optiray, helical axial images of the chest were obtained. Sagittal and coronal reconstructions were viewed as well as maximal intensity projections on an independent 3-D workstation. Automated exposure control was utilized for the study. A dose lowering technique was utilized adhering to the principles of ALARA. CT DOSE: 1316.97 mGy.cm FINDINGS: No enlarged axillary, mediastinal or hilar lymph nodes are present. Size of the heart is normal. No central pulmonary emboli are identified. There is no pericardial effusion. No thoracic aortic dissection. Left subclavian Nsoxer-n-Nbtb is in place. The previously described 4 x 2.9 cm left lower lobe mass on image 120 of 253 has mildly decreased in size since CT of January 10, 2023 when it measured 4.7 x 3.2 cm. A 4 mm right lower lobe nodule on image 140 remains unchanged. The small groundglass left upper lobe nodule shown on prior exam is obscured by multifocal airspace opacities which have developed since chest CT January 10, 2023. These were shown on radiographs of March 08, 2023 and March 14, 2023. There is no cavitation. Central airways are patent. There is no pneumothorax or pleural effusion. No suspicious lesions within the bony thorax. The liver is cirrhotic appearing. This is unchanged. The gallbladder is surgically absent. Suspected subcentimeter left hepatic lobe cyst is unchanged. IMPRESSION: 1. Multifocal airspace opacities throughout the lungs, new since chest CT of January 10, 2023. These were shown on radiographs of March 08, 2023. The findings may reflect an infectious etiology such as multifocal pneumonia. However, other etiologies such as treatment related pneumonitis in the correct clinical setting could appear similar. 2. Slight decrease in size of the primary left lower lobe mass. 3. No thoracic lymphadenopathy. ACT 112: Negative or not required by law. Electronically signed by: Arnel Rowe M.D. 03/14/2023 11:34 AM ECG Additional Comments: Sinus bradycardia T wave abnormality, consider anterior ischemia Abnormal ECG When compared with ECG of 27-JAN-2023 11:05, No significant change was found Code Status & VTE Plan Code Status Full code VTE Prophylaxis Plan VTE Prophylaxis will be ordered: Yes Supervising Physician Co-Signing Physician Notes Patient was seen and examined independently I discussed the case with Georgi GUADARRAMA I reviewed pertinent past medical social family history and also the plan of care and agree with the plan of care. Patient diagnosed in April 2022 after chest x-ray showed abnormalities when she presented with a cough., May she had bronchoscopy EBUS revealing adenocarcinoma. PET scan that same month showed possible right-sided lymphadenopathy and biopsy performed in June confirmed metastasis to the contralateral chest July 01 started on immunotherapy with carboplatin pemetrexed and pembrolizumab, PET scan September had good response subsequently converted to maintenance pembrolizumab Presents today with sore throat increased work of breathing and found to be hypoxic. CTA chest shows progression of pneumonitis infectious versus pembrolizumab toxicity Acute respiratory failure with hypoxia possibly Keytruda toxicity versus multifocal pneumonia. Patient will be placed on broad-spectrum antibiotics cefepime and doxycycline Steroid use in case his Keytruda toxicity. Supplemental oxygen for hypoxia. Exam shows relatively unremarkable lungs which is surprising. Any exceptions will be noted below PG Care Time/CCT Total # of Minutes Spent Total Time Spent with Patient: Total time spent is greater than 50% in coordination of care (as documented) at patient's floor/unit and/or counseling patient: Coding [place] [address] INT INP/OBS CARE 3/75MIN Patient Type Established Medical Decision Making High Complexity Diagnoses Hypoxia R09.02 Hypothyroidism (acquired) E03.9 COPD (chronic obstructive pulmonary disease) with chronic bronchitis J44.9 Adenocarcinoma of lung, stage 4, unspecified laterality C34.90 Laterality: unspecified laterality Type 2 diabetes mellitus without complication, without long-term current use of insulin E11.9 Diabetes mellitus complication status: without complication Diabetes mellitus joint terminal attack controller insulin use: without fdc use Diabetes mellitus type: type 2 Other cirrhosis of liver K74.69 Hepatic cirrhosis type: other cirrhosis Gastroesophageal reflux disease without esophagitis K21.9 Esophagitis presence: without esophagitis Anxiety F41.9 (4) Stage IV adenocarcinoma of lung Laterality: unspecified laterality Qualified Code(s): C34.90 - Malignant neoplasm of unspecified part of unspecified bronchus or lung (5) Diabetes Diabetes mellitus complication status: without complication Diabetes mellitus fdc insulin use: without joint terminal attack controller use Diabetes mellitus type: type 2 Qualified Code(s): E11.9 - Type 2 diabetes mellitus without complications (6) Liver cirrhosis Hepatic cirrhosis type: other cirrhosis Qualified Code(s): K74.69 - Other cirrhosis of liver (7) GERD (gastroesophageal reflux disease) Esophagitis presence: without esophagitis Qualified Code(s): K21.9 - Gastro- esophageal reflux disease without esophagitis
[2023-03-14] MEDS ORDERED: LORazepam 0.5 MG TAB PO STA (12:36)
[2023-03-14] MEDS ORDERED: CARBOHYDRATES FOR HYPOGLYCEMIA PO PRN (12:46)
[2023-03-14] MEDS ORDERED: GLUCOSE 10 TAB/TUBE PO PRN (12:46)
[2023-03-14] MEDS ORDERED: GLUCAGON FOR INJ 1 MG VIAL SQ PRN (12:46)
[2023-03-14] MEDS ORDERED: DEXTROSE 50% 50 ML SYRINGE IV PRN (12:46)
[2023-03-14] MEDS ORDERED: GLUCOSE 40% GEL 15 GM TUBE PO PRN (12:46)
[2023-03-14] MEDS ORDERED: PHARMACY GLYCEMIC MGMT CONSULT PRN (12:46)
[2023-03-14] MEDS ORDERED: ACETAMINOPHEN 325 MG TAB PO PRN (12:46)
[2023-03-14] MEDS ORDERED: CEFEPIME 2,000 MG in SYRINGE 0 ML IV ONE (13:00)
[2023-03-14] MEDS ORDERED: DOXYCYCLINE HYCLATE 100 MG in DEXTROSE 5% MINI-B 100 ML IV STA (13:07)
[2023-03-14] MEDS ORDERED: CYCLOBENZAPRINE HCL 10 MG TAB PO PRN (14:18)
--- NOTE | 2023-03-14 14:26 | Electrocardiogram Report ---
Test Reason : Blood Pressure : / mmHG Vent. Rate : 056 BPM Atrial Rate : 056 BPM P-R Int : 172 ms QRS Dur : 104 ms QT Int : 466 ms P-R-T Axes : 041 027 029 degrees QTc Int : 449 ms Sinus bradycardia Nonspecific T wave abnormality Anteroseptal leads Abnormal ECG When compared with ECG of 27-JAN-2023 11:05, Nonspecific T wave abnormality Anteroseptal leads now present Confirmed by Kartik Mina ([id number]) on 03/14/2023 2:26:13 PM Referred By: REFERRED SELF Confirmed By:Kartik Mina
--- NOTE | 2023-03-14 16:04 | Pulmonary Consultation ---
Date of Consultation March 14, 2023 Assessment & Plan (1) Pneumonitis: Differential for the CT findings and symptoms is broad including immune checkpoint inhibitor pneumonitis, multifocal bacterial infection and further metastatic disease burden. Please obtain sputum cultures although this may be difficult as the patient is not able to expectorate any significant amount of sputum. Agree with current antibiotic course and empiric IV methylprednisone. Will consult oncology for their opinion on the possibility of PD-L1 related pneumonitis. Will likely proceed with bronchoscopy tomorrow morning to rule out infectious etiology. Continue supplemental oxygen to maintain sats above 90%. (2) Abnormal chest CT: (3) Hypoxia: History of Present Illness Reason for Consultation: Abnormal CT with increasing shortness of breath Attending Physician: Kenan Shah MD History of Present Illness 57-year-old female known to me from prior visit in the clinic. I performed a bronchoscopy on her May 2022 due to a large cavitating left lower lobe mass which proved to be adenocarcinoma. She later had a PET scan and cervical chain lymph node biopsy which revealed metastatic disease. She follows [facility] and was started on chemoimmunotherapy including carboplatin/pemetrexed and pembrolizumab which she completed then in August 2022. She has since been started on maintenance pembrolizumab therapy at a dose of 400 mg IV every 6 weeks since September. She presented to the ER today due to throat swelling and anxiety. She was found to be 85% on room air with sinus bradycardia. She had a CT of her chest which revealed multifocal airspace opacities concerning for possible pneumonitis. The ER staff called me I discussed the next best plan of action. I recommended admission to the hospital. Of note, she did complete a 5-day course of azithromycin for possible pneumonia as an outpatient. She was started on methylprednisone 40 mg twice daily, doxycycline 100 mg twice daily and cefepime 2 g every 8 hours per my recommendations. MRSA screen has not been completed. She is currently saturating 98% on 2 L. Patient without significant leukocytosis on labs. Patient denies any fevers. She does endorse hoarseness and weakness. She has a decreased appetite. She has had some chills. She denies any obvious sick contacts. She has not traveled outside of the state. No pets. Respiratory BioFire panel negative on admission. Allergies Allergy/AdvReac Type Severity Reaction Status Date / Time No Known Allergies Allergy Verified 02/09/23 10:45 Home Medications Medication Instructions Recorded Confirmed Type albuterol sulfate 90 mcg/actuation 2 inh inhalation QID PRN shortness 03/25/22 03/14/23 Rx aerosol inhaler (ProAir HFA) of breath or wheezing #8.5 grams diclofenac sodium 3 % topical gel 1 applic topical BID PRN Pain 05/20/22 03/14/23 History cyclobenzaprine 10 mg tablet 10 mg PO TID PRN muscle spasm #30 08/17/22 03/14/23 Rx tabs lorazepam 0.5 mg tablet 0.5 mg PO TID PRN anxiety #90 tabs 08/17/22 03/14/23 Rx fluticasone furoate 100 1 inh inhalation QAM #180 ea 10/13/22 03/14/23 Rx mcg-vilanterol 25 mcg/dose inhalation powder (Breo Ellipta) metformin 500 mg tablet,extended 1,000 mg (2 x 500 mg) PO QAM #180 12/10/22 03/14/23 Rx release 24 hr tabs levothyroxine 50 mcg capsule 50 mcg PO QAM 01/05/23 03/14/23 History pantoprazole 40 mg tablet,delayed 40 mg PO QPM 01/19/23 03/14/23 History release Patient History Medical History (Updated 03/14/23 @ 16:03 by Jose Elias Cao MD) Pneumonitis Hypothyroidism History of anemia Back pain COPD (chronic obstructive pulmonary disease) with chronic bronchitis Stage IV adenocarcinoma of lung Dx'ed 05/2022- immunotherapy every 6 weeks, [place] [facility], next treatment 01/27/2023 Portal hypertensive gastropathy per Endoscopy (09/2020) Anxiety Liver cirrhosis Hepatitis C hx of, treated, no longer has Diabetes metformin daily Asthma inhaler daily/prn GERD (gastroesophageal reflux disease) Surgical History Port-A-Cath in place (01/26/23) Insertion Access Port (Left Subclavian) with Fluoroscopy(Left) - Vivian Giles DO H/O lymph node biopsy History of lung biopsy Hx of colonoscopy History of esophagogastroduodenoscopy (EGD) History of breast biopsy x2---both benign History of lumbar surgery (~05/30/17) laminectomy/discectomy L5-S1 History of tooth extraction History of cholecystectomy History of appendectomy Family History Mother Myocardial infarction Diabetes Heart disease Stroke Father Myocardial infarction Diabetes Heart disease Stroke Grandfather Cancer Uncle Cancer Other Asthma Hypertension No family history of adverse response to anesthesia No family history of bleeding disorder Denies family history of Ovarian cancer Prostate cancer Breast cancer Colorectal cancer Social History Smoking Status: Former smoker Tobacco Type: Cigarettes Age Started Using Tobacco: 10; Age Quit Using Tobacco: 56; packs per day: 1; Cigarettes Per Day: 46 year smoking history 1ppd; Second Hand Exposure: Yes (childhood); Do You Dip or Chew Tobacco: No; Hx Alcohol Use: No Hx Substance Use: No Preferred Language: Turkmen Communication Ability: Effective Visual Impairment: No Limitations Wool Shearer Required: No Beliefs That Will Affect Care: None marital status: Current Living Situation: Spouse current occupational status: employed 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 Patient is in no apparent distress. Patient is well-developed. Eyes: Pupils are equal round and reactive to light. Conjunctivae are normal. Anicteric sclera. Ears nose, mouth and throat: Mallampati class 2. Normal posterior oropharynx. Uvula is midline. Neck: Trachea is midline. Visual inspection is normal. Respiratory: Clear to auscultation bilaterally. No use of accessory muscles. No significant clubbing noted. Cardiovascular: Regular rate and rhythm. No murmurs. No edema. Gastrointestinal: Normal bowel sounds, soft, nontender and nondistended. No hepatosplenomegaly noted. Musculoskeletal: No cyanosis. Patient is able to move all extremities. Strength is 5 out of 5 in the upper and lower extremities. Skin: No rashes, warm dry and intact. Neurologic: No obvious focal neurological deficits seen. Psychiatric: Alert and oriented x3 with a euthymic affect. Results & Data Results & Data Vital Signs (Past 12 Hours) Vital Signs Temp Pulse Pulse Resp BP Pulse Ox O2 Del Method 03/14/23 12:18 57 L 03/14/23 10:42 57 L 16 98 03/14/23 10:00 59 L 25 H 03/14/23 10:00 141/72 H 94 Nasal Cannula 03/14/23 09:30 59 L 19 87 L Room Air 03/14/23 09:30 142/78 H 03/14/23 09:00 66 15 93 03/14/23 09:00 150/89 H 03/14/23 08:31 59 L 16 85 L 03/14/23 08:31 151/73 H 03/14/23 08:30 54 L 20 87 L Room Air 03/14/23 08:15 57 L 03/14/23 08:01 60 16 94 Room Air 03/14/23 08:01 158/73 H 03/14/23 07:16 Room Air 03/14/23 06:59 36.8 C 68 18 154/84 H 94 Room Air O2 Flow Rate 03/14/23 12:18 03/14/23 10:42 03/14/23 10:00 03/14/23 10:00 2 03/14/23 09:30 03/14/23 09:30 03/14/23 09:00 03/14/23 09:00 03/14/23 08:31 03/14/23 08:31 03/14/23 08:30 03/14/23 08:15 03/14/23 08:01 03/14/23 08:01 03/14/23 07:16 03/14/23 06:59 PG Care Time/CCT Total # of Minutes Spent Total Time Spent with Patient: Total time spent is greater than 50% in coordination of care (as documented) at patient's floor/unit and/or counseling patient: Coding Level of Care Code 91725 IN/OBS CONSULT LVL 5,80M Diagnoses Pneumonitis J98.[address] R93.89 Hypoxia R09.02
[2023-03-14] MEDS: methylPREDNISolone 40 MG in SYRINGE 0 ML IV SCH (16:41)
[2023-03-14 18:04] LABS: Prothrombin Time 10.9 Seconds (9.0-12.0)
[2023-03-14] MEDS: INSULIN ASPART PER UNIT CHARGE SC SCH ×2 (18:56→21:14)
[2023-03-14] MEDS ORDERED: LANTUS PER UNIT CHARGE SQ SCH (21:00)
[2023-03-14] MEDS: CEFEPIME 2,000 MG in SYRINGE 0 ML IV SCH (21:14)
[2023-03-14] MEDS: LORazepam 0.5 MG TAB PO PRN (21:14)
[2023-03-14] MEDS: DOXYCYCLINE HYCLATE 100 MG in DEXTROSE 5% MINI-B 100 ML IV SCH (21:15)
[2023-03-14] MEDS: guaiFENesin 600 MG TABCR PO SCH (21:15)
[2023-03-14] MEDS: PANTOprazole 40 MG TAB PO SCH (21:15)
[2023-03-15] MEDS: LEVOTHYROXINE SODIUM 50 MCG TABLET PO SCH (05:42)
[2023-03-15] MEDS: CEFEPIME 2,000 MG in SYRINGE 0 ML IV SCH ×3 (05:42→21:14)
[2023-03-15] MEDS: FLUTICASONE/VILANTEROL 100/25MCG 14 PUFFS/INHALER INH SCH (08:10)
[2023-03-15] MEDS: methylPREDNISolone 40 MG in SYRINGE 0 ML IV SCH ×2 (08:10→18:15)
[2023-03-15] MEDS: guaiFENesin 600 MG TABCR PO SCH ×2 (08:10→21:13)
[2023-03-15] MEDS: INSULIN ASPART PER UNIT CHARGE SC SCH ×4 (08:11→20:46)
[2023-03-15] MEDS: DOXYCYCLINE HYCLATE 100 MG in DEXTROSE 5% MINI-B 100 ML IV SCH ×2 (09:50→21:14)
[2023-03-15 09:53] LABS: Basophils # (auto) 0.07 K/uL (0.00-0.20); Basophils % (auto) 0.4 %; Eosinophils # (auto) 0.01 K/uL (0.00-0.50); Eosinophils % (auto) 0.1 %; Hematocrit (blood only) 44.2 % (37.0-47.0); Hemoglobin 14.8 g/dl (12.0-16.0); Immature Granulocytes # (auto) 0.15 K/uL (0.01-0.20); Immature Granulocytes % (auto) 0.8 %; Lymphocytes # (auto) 2.76 K/uL (1.20-3.40); Lymphocytes % (auto) 14.6 %; Mean Corpuscular Hemoglobin 29.4 pg (25.0-34.0); Mean Corpuscular Hgb Conc 33.5 g/dL (32.0-36.0); Mean Corpuscular Volume 87.9 fL (80.0-100.0); Mean Platelet Volume 10.6 fL (9.4-12.4); Monocytes # (auto) 1.24 K/uL (0.11-0.59); Monocytes % (auto) 6.5 %; Neutrophils # (auto) 14.72 K/uL (1.40-6.50); Neutrophils % (auto) 77.6 %; Platelet Count 254 K/uL (130-400); RDW Coefficient of Variation 12.8 % (11.5-14.5); RDW Standard Deviation 41.2 fL (36.4-46.3); Red Blood Count 5.03 M/uL (4.20-5.40); White Blood Count 18.95 K/ul (4.8-10.8)
[2023-03-15 10:05] LABS: Anion Gap 8 (3-11); Blood Urea Nitrogen 15 mg/dl (6-23); C Reactive Protein < 0.50 mg/dl (0-0.5); Calcium 9.1 mg/dl (8.6-10.3); Carbon Dioxide 26 mmol/L (21-32); Chloride 107 mmol/L (98-107); Creatinine Clr Calc Pharmacy 84.1 ml/min; Est GFR (Non-African American) 81.9 ml/min; Glucose 119 mg/dl (70-99(Fasting)); Potassium 4.1 mmol/L (3.5-5.1); Sodium 141 mmol/L (136-145)
[2023-03-15] MEDS ORDERED: MIDAZOLAM HCL 5 MG/ML 1 ML VIAL ONE (11:48)
[2023-03-15] MEDS ORDERED: fentaNYL citrate PF 100 MCG/2 ML VIAL ONE (11:48)
[2023-03-15] MEDS ORDERED: MIDAZOLAM HCL 1 MG/ML 2ML VIAL ONE (11:48)
--- NOTE | 2023-03-15 11:57 | History & Physical Bridge Note ---
Date of Service March 15, 2023 History & Physical Bridge Note I have examined the patient, reviewed the History & Physical and in the interval since the performance of the History & Physical I have noted the following changes of clinical significance: no changes noted
--- NOTE | 2023-03-15 11:57 | Oncology Consultation ---
Date of Consultation March 15, 2023 Assessment & Plan (1) Lung cancer: (2) Pneumonitis: Plan Patient who presented with hypoxia and shortness of breath with imaging concerning for possible pneumonia versus pneumonitis. Bronchoscopy obtained today revealed large fungating left lower lobe mass partially occluding airway. 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 Recommend continuing with steroids. Can be discharged home on prednisone 90 mg p.o. daily (1 mg/kg/day) . Will plan to start steroid taper when symptoms have resolved. -Obtain brain MRI for restaging purposes -Plan to obtain outpatient PET/CT to evaluate for disease progression. If disease progression is noted on imaging, we will plan to retreat with carboplatin/pemetrexed x 6 cycles since she last received chemotherapy about 6 months ago and had previously responded to similar regimen. This will be followed by maintenance pemetrexed with or without pembrolizumab depending on how quickly pneumonitis response to steroids -Agree with consideration for outpatient radiation treatment Thank you for this consult. I will plan to see her back in clinic in about 1 to 2 weeks to possibly start a steroid taper. Please feel free to call if you have any further questions. History of Present Illness Reason for Consultation: Lung cancer Attending Physician: Charles Mckeon MD History of Present Illness 57-year-old female with stage IV adenocarcinoma of the lung for which she is s/p 4 cycles of chemoimmunotherapy treatment with carboplatin/pemetrexed/pembrolizumab completed on 09/02/2022 followed by maintenance pembrolizumab which she remains on. Presented with worsening shortness of breath. CT Chest on 03/14/2023 revealed multifocal airspace opacities throughout the lungs, reflecting infectious etiology such as multifocal pneumonia however other etiologies such as treatment related pneumonitis could appear similar, decrease in size of left lower lobe mass. Underwent bronchoscopy today which revealed large fungating left lower lobe mass partially occluding airway. Oncology was consulted for evaluation of possible immunotherapy induced pneumonitis. She is currently on methylprednisolone 40 mg IV twice daily, cefepime and doxycycline. Allergies Allergy/AdvReac Type Severity Reaction Status Date / Time No Known Allergies Allergy Verified 02/09/23 10:45 Home Medications Medication Instructions Recorded Confirmed Type albuterol sulfate 90 mcg/actuation 2 inh inhalation QID PRN shortness 03/25/22 03/14/23 Rx aerosol inhaler (ProAir HFA) of breath or wheezing #8.5 grams diclofenac sodium 3 % topical gel 1 applic topical BID PRN Pain 05/20/22 03/14/23 History cyclobenzaprine 10 mg tablet 10 mg PO TID PRN muscle spasm #30 08/17/22 03/14/23 Rx tabs lorazepam 0.5 mg tablet 0.5 mg PO TID PRN anxiety #90 tabs 08/17/22 03/14/23 Rx fluticasone furoate 100 1 inh inhalation QAM #180 ea 10/13/22 03/14/23 Rx mcg-vilanterol 25 mcg/dose inhalation powder (Breo Ellipta) metformin 500 mg tablet,extended 1,000 mg (2 x 500 mg) PO QAM #180 12/10/22 03/14/23 Rx release 24 hr tabs levothyroxine 50 mcg capsule 50 mcg PO QAM 01/05/23 03/14/23 History pantoprazole 40 mg tablet,delayed 40 mg PO QPM 01/19/23 03/14/23 History release Patient History Medical History (Updated 03/14/23 @ 16:03 by Jose Elias Cao MD) Pneumonitis Hypothyroidism History of anemia Back pain COPD (chronic obstructive pulmonary disease) with chronic bronchitis Stage IV adenocarcinoma of lung Dx'ed 05/2022- immunotherapy every 6 weeks, [place] [facility], next treatment 01/27/2023 Portal hypertensive gastropathy per Endoscopy (09/2020) Anxiety Liver cirrhosis Hepatitis C hx of, treated, no longer has Diabetes metformin daily Asthma inhaler daily/prn GERD (gastroesophageal reflux disease) Surgical History Port-A-Cath in place (01/26/23) Insertion Access Port (Left Subclavian) with Fluoroscopy(Left) - Vivian Giles DO H/O lymph node biopsy History of lung biopsy Hx of colonoscopy History of esophagogastroduodenoscopy (EGD) History of breast biopsy x2---both benign History of lumbar surgery (~05/30/17) laminectomy/discectomy L5-S1 History of tooth extraction History of cholecystectomy History of appendectomy Family History Mother Myocardial infarction Diabetes Heart disease Stroke Father Myocardial infarction Diabetes Heart disease Stroke Grandfather Cancer Uncle Cancer Other Asthma Hypertension No family history of adverse response to anesthesia No family history of bleeding disorder Denies family history of Ovarian cancer Prostate cancer Breast cancer Colorectal cancer Social History Smoking Status: Former smoker Tobacco Type: Cigarettes Age Started Using Tobacco: 10; Age Quit Using Tobacco: 56; packs per day: 1; Cigarettes Per Day: 46 year smoking history 1ppd; Second Hand Exposure: Yes (childhood); Do You Dip or Chew Tobacco: No; Hx Alcohol Use: No Hx Substance Use: No Preferred Language: Maori Communication Ability: Effective Visual Impairment: No Limitations Head Grower Required: No Beliefs That Will Affect Care: None marital status: Current Living Situation: Spouse current occupational status: employed 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 How many Children do You have: 0 Feels Safe at Home: Yes Childhood Exposure to Second-Hand Smoke: Yes Diet: diabetic and regular caffeine: Yes Dental Care, Regularly: No Physical Activity Frequency: Does not Exercise Seatbelt Use: always Sunscreen Use: No Assistive Devices: Glasses Results & Data Vital Signs (Past 12 Hours) Vital Signs Temp Pulse Pulse Pulse Resp BP Pulse Ox 03/15/23 11:45 68 18 134/71 91 03/15/23 11:12 36.7 C 81 18 133/73 95 03/15/23 10:30 03/15/23 08:21 37.0 C 64 20 124/75 94 03/15/23 07:08 77 03/15/23 04:12 36.7 C 71 18 127/57 L O2 Del Method O2 Flow Rate 03/15/23 11:45 Room Air 03/15/23 11:12 Room Air 03/15/23 10:30 Room Air 03/15/23 08:21 Room Air 03/15/23 07:08 03/15/23 04:12 Nasal Cannula 2 (1) Lung cancer Laterality: unspecified laterality Lung location: unspecified part of lung Qualified Code(s): C34.90 - Malignant neoplasm of unspecified part of unspecified bronchus or lung
--- NOTE | 2023-03-15 11:59 | Pre Anesthesia Assessment ---
Date of Service March 15, 2023 Pre Sedation Assessment Vital Signs Temp Pulse Pulse Pulse Resp BP BP 03/15/23 11:45 68 18 03/15/23 11:12 36.7 C 81 18 03/15/23 10:30 03/15/23 08:21 37.0 C 64 20 03/15/23 07:08 77 03/15/23 04:12 36.7 C 71 18 03/14/23 23:34 36.7 C 73 18 145/83 H 03/14/23 23:06 03/14/23 22:00 71 03/14/23 21:25 36.7 C 77 20 133/69 03/14/23 21:20 73 03/14/23 20:00 67 23 124/83 03/14/23 19:52 67 23 141/67 H 03/14/23 17:00 62 16 134/79 03/14/23 16:01 90 21 131/77 03/14/23 12:42 138/83 03/14/23 12:42 61 17 03/14/23 12:18 57 L BP Pulse Ox O2 Del Method O2 Flow Rate 03/15/23 11:45 134/71 91 Room Air 03/15/23 11:12 133/73 95 Room Air 03/15/23 10:30 Room Air 03/15/23 08:21 124/75 94 Room Air 03/15/23 07:08 03/15/23 04:12 127/57 L Nasal Cannula 2 03/14/23 23:34 91 Room Air 03/14/23 23:06 Room Air 03/14/23 22:00 03/14/23 21:25 100 Room Air 03/14/23 21:20 03/14/23 20:00 90 Nasal Cannula 1 03/14/23 19:52 92 Nasal Cannula 1 03/14/23 17:00 95 Room Air 03/14/23 16:01 03/14/23 12:42 03/14/23 12:42 95 03/14/23 12:18 Pre-Sedation Airway Assessment Smoking Status: Former smoker Notes The planned sedation has been discussed with the patient. Informed Consent was obtained. I have identified the patient, determined the appropriateness of sed ation and have assessed the patient immediately prior to the procedure. All medicine(s) and interventions are by my order.
--- NOTE | 2023-03-15 12:05 | Pre Anesthesia Assessment ---
Date of Service March 15, 2023 Pre Sedation Assessment Vital Signs Temp Pulse Pulse Pulse Resp BP BP 03/15/23 11:45 68 18 03/15/23 11:12 36.7 C 81 18 03/15/23 10:30 03/15/23 08:21 37.0 C 64 20 03/15/23 07:08 77 03/15/23 04:12 36.7 C 71 18 03/14/23 23:34 36.7 C 73 18 145/83 H 03/14/23 23:06 03/14/23 22:00 71 03/14/23 21:25 36.7 C 77 20 133/69 03/14/23 21:20 73 03/14/23 20:00 67 23 124/83 03/14/23 19:52 67 23 141/67 H 03/14/23 17:00 62 16 134/79 03/14/23 16:01 90 21 131/77 03/14/23 12:42 138/83 03/14/23 12:42 61 17 03/14/23 12:18 57 L BP Pulse Ox O2 Del Method O2 Flow Rate 03/15/23 11:45 134/71 91 Room Air 03/15/23 11:12 133/73 95 Room Air 03/15/23 10:30 Room Air 03/15/23 08:21 124/75 94 Room Air 03/15/23 07:08 03/15/23 04:12 127/57 L Nasal Cannula 2 03/14/23 23:34 91 Room Air 03/14/23 23:06 Room Air 03/14/23 22:00 03/14/23 21:25 100 Room Air 03/14/23 21:20 03/14/23 20:00 90 Nasal Cannula 1 03/14/23 19:52 92 Nasal Cannula 1 03/14/23 17:00 95 Room Air 03/14/23 16:01 03/14/23 12:42 03/14/23 12:42 95 03/14/23 12:18 Cardiovascular RRR, no murmur, no edema Respiratory normal respiratory effort, lungs clear to auscultation Pre-Sedation Airway Assessment Smoking Status: Former smoker Hx Sleep Apnea: No Short, Thick Neck: No Thyromental Distance: > or= 3.5 Finger Breadths Oral Cavity: + WNL Mallampati Class: II ASA: ASA3 NPO Status Date of Last Intake of Fluids: 03/14/23 Time of Last Intake of Fluids: 19:00 Date of Last Intake of Solid Food: 03/14/23 Time of Last Intake of Solid Foods: 19:00 Notes The planned sedation has been discussed with the patient. Informed Consent was obtained. I have identified the patient, determined the appropriateness of sedation and have assessed the patient immediately prior to the procedure. All medicine(s) and interventions are by my order.
--- NOTE | 2023-03-15 13:13 | Post Anesthesia Assessment ---
Date of Service March 15, 2023 Post Sedation Assessment Vital Signs Temp Pulse Pulse Pulse Resp BP BP 03/15/23 13:05 63 18 03/15/23 12:50 71 18 03/15/23 12:35 76 18 03/15/23 12:30 86 20 03/15/23 12:25 70 120/71 03/15/23 12:20 65 16 125/68 03/15/23 12:15 70 14 117/83 03/15/23 12:10 69 16 131/69 03/15/23 11:45 68 18 03/15/23 11:12 36.7 C 81 18 03/15/23 10:30 03/15/23 08:21 37.0 C 64 20 03/15/23 07:08 77 03/15/23 04:12 36.7 C 71 18 03/14/23 23:34 36.7 C 73 18 145/83 H 03/14/23 23:06 03/14/23 22:00 71 03/14/23 21:25 36.7 C 77 20 133/69 03/14/23 21:20 73 03/14/23 20:00 67 23 124/83 03/14/23 19:52 67 23 141/67 H 03/14/23 17:00 62 16 134/79 03/14/23 16:01 90 21 131/77 BP Pulse Ox O2 Del Method O2 Flow Rate 03/15/23 13:05 117/65 95 Nasal Cannula 2 03/15/23 12:50 123/75 95 Nasal Cannula 2 03/15/23 12:35 163/77 H 98 Oxymask 6 03/15/23 12:30 94 Oxymask 6 03/15/23 12:25 97 Oxymask 6 03/15/23 12:20 95 Oxymask 6 03/15/23 12:15 94 Oxymask 5 03/15/23 12:10 97 Oxymask 5 03/15/23 11:45 134/71 91 Room Air 03/15/23 11:12 133/73 95 Room Air 03/15/23 10:30 Room Air 03/15/23 08:21 124/75 94 Room Air 03/15/23 07:08 03/15/23 04:12 127/57 L Nasal Cannula 2 03/14/23 23:34 91 Room Air 03/14/23 23:06 Room Air 03/14/23 22:00 03/14/23 21:25 100 Room Air 03/14/23 21:20 03/14/23 20:00 90 Nasal Cannula 1 03/14/23 19:52 92 Nasal Cannula 1 03/14/23 17:00 95 Room Air 03/14/23 16:01 Recovery Score Activity: Moves 4 extremities Respiration: Deep Breath/Cough Circulation: +/-20% PreAnes Value Consciousness: Fully Awake Oxygen Saturation: > 92% On Room Air Post Anesthesia Score: 10 Discharge Sedation Level of Care: Fast Track Phase II Post Sedation Plan On clinical assessment, the patient appears to have tolerated the sedation without complications. Patient is recovering as anticipated. Patient will continue to be monitored by nursing and may be discharged when sedation discharge criteria are met per below protocol. Upon Completions of procedure up to 15 minutes continue every 5 minute vital signs and the P.A.R. score; then discharge to a Phase I or Fast Track to Phase II per the following guidelines: * Discharge Patient to appropriate Phase II area if PAR is 8 or greater or return to pre- procedure baseline. The post - procedure orders will be as directed. * If PAR score is less than 8 or not return to pre-procedure baseline then patient will follow Phase I monitoring till PAR is reached for Phase II. The Phase I may be done in procedure room or may call to secure a Phase I area. * If naloxone or flumazenil are used for reversal, hold in Phase I for continued monitoring from when last reversal dose was given for a minimum of 60 minutes or longer pending the nurse and/or physician discretion of patient condition before discharge to Phase II. Please call the Sedation Physician to re-evaluate and complete post-note for discharge to Phase II area. Do NOT discharge from procedure sedation or Phase 1 until post- sedation evaluation note is complete by procedure /sedation MD Sedation Discharge Instructions to be given to the patient at discharge to home.
--- NOTE | 2023-03-15 13:16 | Procedure Note ---
Procedure Note Date of Service March 15, 2023 Note PREOPERATIVE DIAGNOSIS: Pneumonitis in a patient on PD-L1 therapy PROCEDURE PERFORMED: Flexible fiberoptic bronchoscopy with BAL from the right upper lobe, bronchial washings from the right lower lobe and biopsy of endobronchial mass in the right lower lobe COMPLICATIONS: None. INDICATION: Rule out infectious etiology Total sedation time 19 minutes. PROCEDURE: After obtaining an informed consent, the patient was brought to the Bronchoscopy Suite. The patient had appropriate oxygen, blood pressure, heart rate, and respiratory rate monitoring applied and monitored continuously throughout the procedure. Supplemental oxygen via nasal cannula as per nursing records was applied to the nasopharynx with adequate saturations achieved. Topical anesthesia with nebulized 1% lidocaine was achieved. Subsequent to this, the patient was premedicated with 4 mg of midazolam and 100 mcg of fentanyl. Bronchoscope was inserted via the right nares. Vocal cords were observed. 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 Scope was inserted past the vocal cords. Trachea appeared normal. Natalie was sharp. Bilateral tracheobronchial tree inspection was performed. The scope was wedged into the right upper lobe and a BAL was performed with 120 mL of saline. Approximately 30 mL was aspirated back. I then turned my attention to the left lung. I noted a large fungating mass in the left lower lobe partially occluding the left lower lobe airways beneath the level of the superior segment of the left lower lobe. The mass appeared macerated with an area of hyperpigmentation. We washed this area with saline. I performed two forcep biopsies. There was some minimal bleeding but hemostasis was achieved with saline. Total blood loss was less than 5 cc. Bronchoscope was then completely withdrawn. Patient tolerated the procedure well. Please see separate images and the physical chart from the left lower lobe lung mass from the bronchoscopy. Recommendations: Patient with evidence of at least a partially paralyzed right vocal cord. Will need ENT follow-up Washings sent from the left lower lobe and BAL sent from the right upper lobe for cultures. Patient with large fungating left lower lobe mass partially occluding the airway. Biopsy results from this area pending. Cultures from this area pending as well. Radiation oncology consult may be of benefit. Suspect the interstitial abnormalities are related to PD-L1 pneumonitis. Postprocedure chest x-ray without evidence of pneumothorax. Coding CPT Codes Pulmonary/Thoracic - Pulmonary and Thoracic: 59766 Dx bronchoscopy/BAL ([id number]) Pulmonary/Thoracic - Pulmonary and Thoracic: 74280 Bronchoscopy w bronchial or endobronchial bx ([id number]) Sedation/Anesthesia - Sedation/Anesthesia: 17318 Mod Sedation by the same physician;Init15 Min Child Age 5 & Up ([id number]) [facility] [place] Procedure Codes (Charges) Pulmonary/Thoracic Procedure 1: Pulmonary and Thoracic: 62209 Dx bronchoscopy/BAL Procedure 2: Pulmonary and Thoracic: 22839 Bronchoscopy w bronchial or endobronchial bx Sedation/Anesthesia Procedure 1: Sedation/Anesthesia: 25286 Mod Sedation by the same physician;Init15 Min Child Age 5 & Up Total Sedation Time (minutes): 19
--- NOTE | 2023-03-15 14:05 | Pharmacy Report ---
Pharmacy Glycemic Short Note 2 - Date of Service March 15, 2023 - Glycemic Short BSG Results (Last 24 hours): 03/14/23 03/14/23 03/15/23 17:27 20:47 08:07 Glucose POC Glucose 146 H 176 H 121 H 03/15/23 09:04 Glucose 119 H POC Glucose OUTPATIENT ANTIDIABETIC REGIMEN: * metformin 1000mg QAM * HbA1c 5.6% (12/15/22) ASSESSMENT: * Bibiana is a 57 YOF admitted with shortness of breath and a history of T2DM. Pharmacy has been consulted for glycemic management while inpatient. * Fasting BSG was within goal range this AM, basal insulin currently withheld due to acceptable BSGs and diet status of NPO. * She was started on methylprednisolone 40mg IV BID17, will initiate basal insulin at 0.1 units/kg with methylprednisolone at dinner. Allow for additional 0.1 units/kg at bedtime if BSGs significantly elevated. * Novolog initiated at approximately a weight based stress of 2, not enough information to adjust at this point. Will continue to monitor. PLAN FOR INPATIENT GLYCEMIC CONTROL: * Hold outpatient oral diabetes medications * Basal insulin * Lantus 10 units SQ QDD x1 * Lantus 0-10 units SQ HS based on BSG (see eMAR for additional details) * Reassess basal in AM. * Bolus insulin * NovoLog per scale ACHS or Q6hrs while NPO * Goal Range: Low 120 mg/dL - High 150 mg/dL * Correction Factor: 30 mg/dL/unit * Nutritional / Prandial insulin per carb ratio of 1 unit per 10 grams CHO consumed
--- NOTE | 2023-03-15 14:25 | XRay Report ---
SINGLE VIEW CHEST CLINICAL HISTORY: Status post bronchoscopy. FINDINGS: An AP, portable, upright chest radiograph is compared to chest x-ray and chest CT dated 03/14. A left subclavian central venous infusion port is unchanged position. The cardiomediastinal si lhouette is unremarkable. A left lower lobe masslike opacity is likely unchanged. Patchy airspace opa cities again seen throughout both lungs. No pleural effusion is identified. There is no pneumothorax. The bony thorax appears intact. IMPRESSION: 1. No pneumothorax is identified post procedure. 2. Patchy airspace opacities are again seen throughout both lungs, and have not significantly changed from 03/14/2023. Radiographic follow-up to resolution is recommended. 3. A mass lesion in the left lower lung is likely unchanged. ACT 112: Negative or not required by law. Electronically signed by: [place] M.D. 03/15/2023 2:24 PM
[2023-03-15 15:00] LABS: Eosinophil Body Fluid Man 1 %; Fluid Mono/Macrophage 53 %; Lymphocyte Body Fluid Man 24 %; Neutrophil Body Fluid Man 22 %
[2023-03-15] MEDS ORDERED: LANTUS PER UNIT CHARGE SC SCH ×2 (16:30→21:00)
--- NOTE | 2023-03-15 20:13 | Hospitalist Progress Note ---
Date of Service March 15, 2023 Assessment & Plan (1) Pneumonitis: Plan: Pt presented with pneumonitis. It is uncertain if this represents immune checkpoint inhibitor induced pneumonitis vs infectious pneumonitis. Thus far procal is negative, sed rate and crp are normal, and respiratory biofire is negative. s/p bronch today by Dr Cao for tissue sampling, BAL, etc cultures from bronch sent in the event this is bacterial pneumonitis - cont cefepime, doxy MRSA screen is negative -- defer on MRSA coverage cont steroids IV - this will cover keytruda induced pneumonitis if this is the primary problem appreciate pulmonary assistance appreciate heme/onc assistance (2) Stage IV adenocarcinoma of lung: Plan: initial dx 05/2022 LLL adenocarcinoma with metastatic disease to right cervical lymph node follows with Dr Wolf completed carboplatin/pemetrexed chemotherapy and had previously responded to that regimen earlier this year. this was followed by maintenance IV pembrolizumab [id number]. now with concern for pembrolizumab induced pneumonitis (see #1 above). Dr Wolf considering placing her back on carboplatin/pemetrexed. s/p bronch today - see #1. agree with MRI brain as recommended by Dr Wolf. (3) COPD (chronic obstructive pulmonary disease) with chronic bronchitis: Plan: cont usual inhalers nebs prn steroids - primarily for #1 (4) Hypothyroidism (acquired): Plan: Continue levothyroxine TSH 3.6 yesterday (5) Diabetes: Plan: Hold metformin Pharmacy glycemic team is managing cont basal-bolus insulins (6) Liver cirrhosis: Plan: -LFT's are WNL -No signs of hepatic encephalopathy -Euvolemic - no decompensation 2nd to prior HepC infection? (7) GERD (gastroesophageal reflux disease): Plan: Continue daily PPI (8) Anxiety: Plan: Continue prn Ativan (9) Tobacco use: Plan: quit early 2022 (10) Hepatitis C: Plan: s/p Rx for such in the past does have radiographic evidence of cirrhosis however Plan defer on chemical DVT prophy today but start such tomorrow - DVT/PE risk is quite high in light of stage 4 lung ca Admission and Anticipated Discharge Date Admission Date: March 14, 2023 Subjective I saw patient late in the afternoon she underwent bronchoscopy by Dr Cao earlier in the day w/o incident she also met with Dr Wolf from oncology and Dr Wolf plans to resume standard chemotherapy in the near-future there is concern for Keytruda induced pneumonitis and this will be stopped she admits to feeling very down this afternoon due to the news that she needs to go back to standard chemo with possible radiation she was tearful during the visit she reports sleeping poorly and plans to use ativan at HS tonight to help with this Review of Systems Review of Systems: gen - no fevers or chills cv - no chest pain pulm - cough is nonproductive; no hemoptysis; dyspnea improved in comparison to yesterday GI - no abd pain, no N/V Physical Exam Physical Exam: gen - sitting at side of bed, tearful; NAD neck - no JVD mouth - MMM, no lesions heart - RRR, s1 s2, no murmur lungs - mild rales L base, otherwise CTA b/l with good airation and no wheezing; no increased work of breathing abd - soft NT ND BS+ ext - no edema, pulses 2 + b/l psych - a/o x 3 , tearful Results & Data Results & Data Vital Signs (Past 12 Hours) Vital Signs Temp Pulse Pulse Pulse Resp BP BP 03/15/23 19:36 36.8 C 62 18 145/78 H 03/15/23 15:41 36.7 C 68 16 03/15/23 15:06 65 03/15/23 14:18 03/15/23 13:36 36.8 C 82 18 03/15/23 13:05 63 18 03/15/23 12:50 71 18 03/15/23 12:35 76 18 03/15/23 12:30 03/15/23 12:30 86 20 03/15/23 12:25 70 120/71 03/15/23 12:20 65 16 125/68 03/15/23 12:15 70 14 117/83 03/15/23 12:10 69 16 131/69 03/15/23 11:45 68 18 03/15/23 11:12 36.7 C 81 18 03/15/23 10:30 03/15/23 08:21 37.0 C 64 20 BP Pulse Ox Pulse Ox O2 Del Method O2 Del Method O2 Flow Rate 03/15/23 19:36 96 Room Air 03/15/23 15:41 132/65 92 Room Air 03/15/23 15:06 03/15/23 14:18 96 Room Air 03/15/23 13:36 134/70 96 Nasal Cannula 2 03/15/23 13:05 117/65 95 Nasal Cannula 2 03/15/23 12:50 123/75 95 Nasal Cannula 2 03/15/23 12:35 163/77 H 98 Oxymask 6 03/15/23 12:30 Oxymask 03/15/23 12:30 94 Oxymask 6 03/15/23 12:25 97 Oxymask 6 03/15/23 12:20 95 Oxymask 6 03/15/23 12:15 94 Oxymask 5 03/15/23 12:10 97 Oxymask 5 03/15/23 11:45 134/71 91 Room Air 03/15/23 11:12 133/73 95 Room Air 03/15/23 10:30 Room Air 03/15/23 08:21 124/75 94 Room Air Laboratory Results Laboratory Results - last 24 hr 03/14/23 03/15/23 03/15/23 22:00 08:07 09:04 WBC 18.95 H RBC 5.03 Hgb 14.8 Hct 44.2 MCV 87.9 MCH 29.4 MCHC 33.5 RDW Std Deviation 41.2 RDW Coeff of Ann-Marie 12.8 Plt Count 254 MPV 10.6 Immature Gran % (Auto) 0.8 Neut % (Auto) 77.6 Lymph % (Auto) 14.6 Armstrong % (Auto) 6.5 Eos % (Auto) 0.1 Baso % (Auto) 0.4 Neut # (Auto) 14.72 H Lymph # (Auto) 2.76 Armstrong # (Auto) 1.24 H Eos # (Auto) 0.01 Baso # (Auto) 0.07 Immature Gran # (Auto) 0.15 ESR Sodium 141 Potassium 4.1 Chloride 107 Carbon Dioxide 26 Anion Gap 8 BUN 15 Creatinine 0.79 Est Cr Clr Drug Dosing 84.1 Est GFR ( Amer) 95.0 Est GFR (Non-Af Amer) 81.9 BUN/Creatinine Ratio 19.0 Glucose 119 H POC Glucose 121 H Calcium 9.1 C-Reactive Protein < 0.50 Fluid Neutrophils % Fluid Lymphocytes % Fluid Eosinophils % Fl Monocyt/Macrophag % Fluid Comment Nasal Screen MRSA (PCR) Negative Coccidioid immitis DNA Histo/Blasto PCR Result Pneumocyst jirovecii PCR Aspergillus Antigen 03/15/23 03/15/23 03/15/23 09:05 17:06 20:24 WBC RBC Hgb Hct MCV MCH MCHC RDW Std Deviation RDW Coeff of Ann-Marie Plt Count MPV Immature Gran % (Auto) Neut % (Auto) Lymph % (Auto) Armstrong % (Auto) Eos % (Auto) Baso % (Auto) Neut # (Auto) Lymph # (Auto) Armstrong # (Auto) Eos # (Auto) Baso # (Auto) Immature Gran # (Auto) ESR 18 Sodium Potassium Chloride Carbon Dioxide Anion Gap BUN Creatinine Est Cr Clr Drug Dosing Est GFR ( Amer) Est GFR (Non-Af Amer) BUN/Creatinine Ratio Glucose POC Glucose 196 H 131 H Calcium C-Reactive Protein Fluid Neutrophils % Fluid Lymphocytes % Fluid Eosinophils % Fl Monocyt/Macrophag % Fluid Comment Nasal Screen MRSA (PCR) Coccidioid immitis DNA Histo/Blasto PCR Result Pneumocyst jirovecii PCR Aspergillus Antigen 03/15/23 Unknown WBC RBC Hgb Hct MCV MCH MCHC RDW Std Deviation RDW Coeff of Ann-Marie Plt Count MPV Immature Gran % (Auto) Neut % (Auto) Lymph % (Auto) Armstrong % (Auto) Eos % (Auto) Baso % (Auto) Neut # (Auto) Lymph # (Auto) Armstrong # (Auto) Eos # (Auto) Baso # (Auto) Immature Gran # (Auto) ESR Sodium Potassium Chloride Carbon Dioxide Anion Gap BUN Creatinine Est Cr Clr Drug Dosing Est GFR ( Amer) Est GFR (Non-Af Amer) BUN/Creatinine Ratio Glucose POC Glucose Calcium C-Reactive Protein Fluid Neutrophils % 22 Fluid Lymphocytes % 24 Fluid Eosinophils % 1 Fl Monocyt/Macrophag % 53 Fluid Comment Nasal Screen MRSA (PCR) Coccidioid immitis DNA Pending Histo/Blasto PCR Result Pending Pneumocyst jirovecii PCR Pending Aspergillus Antigen Pending PG Care Time/CCT Total # of Minutes Spent Total Time Spent with Patient: Total time spent is greater than 50% in coordination of care (as documented) at patient's floor/unit and/or counseling patient: Coding Level of Care Code 89446 SUB INP/OBS CARE 2/35MIN Diagnoses Pneumonitis J98.4 Adenocarcinoma of lung, stage 4, unspecified laterality C34.90 Laterality: unspecified laterality COPD (chronic obstructive pulmonary disease) with chronic bronchitis J44.9 Hypothyroidism (acquired) E03.9 Type 2 diabetes mellitus without complication, without long-term current use of insulin E11.9 Diabetes mellitus type: type 2 Diabetes mellitus nursing home insulin use: without nursing home use Diabetes mellitus complication status: without complication Other cirrhosis of liver K74.69 Hepatic cirrhosis type: other cirrhosis Gastroesophageal reflux disease without esophagitis K21.9 Esophagitis presence: without esophagitis Anxiety F41.9 Tobacco use Z72.0 Hepatitis C B19.20 (2) Stage IV adenocarcinoma of lung Laterality: unspecified laterality Qualified Code(s): C34.90 - Malignant neoplasm of unspecified part of unspecified bronchus or lung (5) Diabetes Diabetes mellitus type: type 2 Diabetes mellitus nursing home insulin use: without buttermaker continuous churn use Diabetes mellitus complication status: without complication Qualified Code(s): E11.9 - Type 2 diabetes mellitus without complications (6) Liver cirrhosis Hepatic cirrhosis type: other cirrhosis Qualified Code(s): K74.69 - Other cirrhosis of liver (7) GERD (gastroesophageal reflux disease) Esophagitis presence: without esophagitis Qualified Code(s): K21.9 - Gastro- esophageal reflux disease without esophagitis
[2023-03-15] MEDS: LORazepam 0.5 MG TAB PO PRN (21:13)
[2023-03-15] MEDS: PANTOprazole 40 MG TAB PO SCH (21:13)
[2023-03-16] MEDS ORDERED: GADOBUTROL 65ML VIAL IV ONE (00:29)
--- NOTE | 2023-03-16 04:23 | Magnetic Resonance Report ---
Exam(s): MRI HEAD W/WO Contrast IV Amt: 9ml gadavist EXAM: MR Head Without and With Intravenous Contrast CLINICAL HISTORY: Reason for exam: Lung cancer, r/o brain metastases. TECHNIQUE: Magnetic resonance images of the head/brain without and with intravenous contrast in multiple planes. CONTRAST: Patient received 9ml gadavist of IV contrast COMPARISON: Brain MRI 12-10-2022 FINDINGS: Brain: Mild nonspecific white matter changes. The flow voids of the base of the brain are intact. No mass. No hemorrhage. No acute infarct. No evidence of abnormal enhancement. The dural venous sinuses are patent. Ventricles: Unremarkable. No ventriculomegaly. Bones/joints: Hyperostosis frontalis internal.. Mild to advanced facet arthropathy at C2-3, C3-4 and C4-5. No acute fracture. Sinuses: Unremarkable as visualized. No acute sinusitis. Mastoid air cells: Unremarkable as visualized. No mastoid effusion. Orbits: Unremarkable as visualized. IMPRESSION: No evidence of acute intracranial pathology. No evidence of metastatic disease. Electronically signed by: Joanna Farris MD 03/16/23 04:22 AM
[2023-03-16] MEDS: CEFEPIME 2,000 MG in SYRINGE 0 ML IV SCH (05:10)
[2023-03-16] MEDS: LEVOTHYROXINE SODIUM 50 MCG TABLET PO SCH (05:10)
[2023-03-16 08:43] LABS: Basophils # (auto) 0.07 K/uL (0.00-0.20); Basophils % (auto) 0.4 %; Eosinophils # (auto) 0.01 K/uL (0.00-0.50); Eosinophils % (auto) 0.1 %; Hematocrit (blood only) 45.5 % (37.0-47.0); Immature Granulocytes # (auto) 0.19 K/uL (0.01-0.20); Lymphocytes # (auto) 4.24 K/uL (1.20-3.40); Lymphocytes % (auto) 21.4 %; Mean Platelet Volume 10.8 fL (9.4-12.4); Monocytes # (auto) 1.52 K/uL (0.11-0.59); Monocytes % (auto) 7.7 %; Neutrophils # (auto) 13.74 K/uL (1.40-6.50); Neutrophils % (auto) 69.4 %; Platelet Count 278 K/uL (130-400); RDW Coefficient of Variation 12.9 % (11.5-14.5); RDW Standard Deviation 41.6 fL (36.4-46.3); Red Blood Count 5.17 M/uL (4.20-5.40); White Blood Count 19.77 K/ul (4.8-10.8)
--- NOTE | 2023-03-16 08:53 | Pulmonology Progress Note ---
Date of Service March 16, 2023 Assessment & Plan (1) Pneumonitis: (2) Abnormal chest CT: (3) Hypoxia: Plan IMPRESSION: 57-year-old female with a significant past medical history of LEFT lower lobe adenocarcinoma who is currently being managed at the cancer [facility] who presented with concerns for pneumonitis in the setting of checkpoint inhibitor therapy. RECOMMENDATIONS: 1. Pneumonitis - Thought to be related to checkpoint inhibitor. Symptoms continue to improve with high-dose steroids. To be discharged on prednisone taper. Bronchoscopy yesterday with concerns for large fungating LEFT lower lobe mass partially occluding the airway. Biopsies and cultures pending. Additionally, patient noted to have partially paralyzed RIGHT-sided vocal cord with need for outpatient ENT follow-up. Otherwise, the patient is scheduled to follow-up with medical oncology in the outpatient setting. She can follow-up with Dr. Cao in the outpatient setting in the next 3-4 weeks. Recommend Prednisone taper: 40 mg PO for 7 days, 30 mg PO for 7 days, then 20 mg PO to continue until she sees pulmonary in outpatient follow-up. Does not need emergent pulmonary outpatient follow-up and can be appropriately seen in the next 3-4 weeks after med onc/rad onc appointments. 2. Vocal cord dysfunction - Noted during bronchoscopic evaluation. Would benefit from ENT f/u. Thank you for allowing us to participate in the care of this patient. Pulmonary medicine will sign off at this time. Admission and Anticipated Discharge Date Admission Date: March 14, 2023 Subjective Patient seen and evaluated at bedside today. She reports feeling better and is able to breathe more comfortably. She offers no new complaints today. Review of Systems Review of Systems: Unchanged from prior. Physical Exam Physical Exam: VITAL SIGNS - Vital signs and nursing notes were reviewed. GENERAL - 57-year-old female appearing her stated age who is in no acute dist ress. Communicates well with provider and answers questions appropriately. LUNGS - Auscultation reveals normal breath sounds without wheezes, rales, or rhonchi appreciated. CARDIAC - RRR with S1/S2. No murmur, rubs, or gallops appreciated. PSYCH - A&Ox3 and cooperates fully with examiner. Pt is very pleasant and interacts well with examiner. Results & Data Results & Data Vital Signs (Past 12 Hours) Vital Signs Temp Pulse Pulse Pulse Resp BP BP 03/16/23 08:17 61 03/16/23 08:17 03/16/23 08:01 36.8 C 60 60 16 130/86 03/16/23 03:07 36.7 C 63 18 121/67 03/15/23 23:32 36.7 C 60 18 122/71 03/15/23 23:24 03/15/23 22:00 54 L Pulse Ox O2 Del Method O2 Flow Rate 03/16/23 08:17 03/16/23 08:17 Room Air 03/16/23 08:01 96 Room Air 03/16/23 03:07 93 Room Air 03/15/23 23:32 94 Room Air 03/15/23 23:24 Nasal Cannula 2 03/15/23 22:00 PG Care Time/CCT Total # of Minutes Spent Total Time Spent with Patient: Total time spent is greater than 50% in coordination of care (as documented) at patient's floor/unit and/or counseling patient: Coding Level of Care Code 63675 SUB INP/OBS CARE 2/35MIN Diagnoses Pneumonitis J98.[address] R93.89 Hypoxia R09.02
[2023-03-16] MEDS ORDERED: LANTUS PER UNIT CHARGE SC SCH (09:00)
[2023-03-16 09:13] LABS: Calcium 8.9 mg/dl (8.6-10.3); Creatinine Clr Calc Pharmacy 82.1 ml/min; Est GFR (African American) 92.1 ml/min; Est GFR (Non-African American) 79.5 ml/min; Potassium 3.9 mmol/L (3.5-5.1)
[2023-03-16] MEDS: INSULIN ASPART PER UNIT CHARGE SC SCH ×2 (10:01→12:43)
[2023-03-16] MEDS: guaiFENesin 600 MG TABCR PO SCH (10:03)
[2023-03-16] MEDS: FLUTICASONE/VILANTEROL 100/25MCG 14 PUFFS/INHALER INH SCH (10:03)
[2023-03-16] MEDS: methylPREDNISolone 40 MG in SYRINGE 0 ML IV SCH (10:03)
[2023-03-16] MEDS: DOXYCYCLINE HYCLATE 100 MG in DEXTROSE 5% MINI-B 100 ML IV SCH (10:04)
--- NOTE | 2023-03-16 11:52 | Discharge Summary ---
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 ED on 03/14 with complaints of a sensation of throat swelling and anxiety. She was found to be hypoxic on RA at 85%, bradycardic at 57 bpm, but otherwise stable. Labs including CBC, CMP, high sen trop, UA, and full reparatory biofire were unremarkable. Chest xray was read as "1. No significant change in multifocal airspace opacities within the lungs. The findings favor pneumonia. Radiographic follow up to ensure resolution is recommended. 2. Left lower lobe mass, better depicted on prior chest CT and PET/CT.". Soft tissue CT of the neck w/IV con was read as "1. No acute process within the neck. No fluid collection to suggest abscess. Patent airway. 2. Continued decrease in size of the previously biopsied right posterior cervical lymph node. No pathologically enlarged cervical lymph nodes. 3. Multifocal airspace opacities within the lungs, better depicted on the chest CT. Please see that report for further discussion.". And CT of the chest w/IV con was read as "1. Multifocal airspace opacities throughout the lungs, new since chest CT of January 10, 2023. These were shown on radiographs of March 08, 2023. The findings may reflect an infectious etiology such as multifocal pneumonia. However, other etiologies such as treatment related pneumonitis in the correct clinical setting could appear similar. 2. Slight decrease in size of the primary left lower lobe mass. 3. No thoracic lymphadenopathy.". Prior to admission the patient was given 10 mg IV dexamethasone, a dose of Ceftriaxone, 1L NSS, 4 mg IV zofran, and 20 mg IV famotidine. The ED staff spoke with Dr. Cao who recommended admission with IV abx and systemic steroids. He will likely perform a bronchoscopy during this admission. At the time of the exam the patient was sitting in bed in no acute distress with her sitting bedside. She states that for the past 2 months she has been experiencing increased SOB/MCHUGH. She recently completed a 5 day course of Azithromycin for possible pneumonia. She is still receiving Keytruda infusions and follows with Dr. Wolf. This am she woke and had the sensation that her throat was swelling and had significant anxiety, prompting ED visit. She denies recent fever, chest pain, cough, hemoptysis, abd pain, nausea, vomiting, diarrhea, dysuria hematuria, melena, LE swelling, and recent trauma. She does not use home oxygen and quit smoking approximately 9 months ago. Her anxiety has improved but she still has the sensation of her throat feeling slightly swollen. She is a full code and would want her to make medical decisions for her if she cannot make them herself. Please refer to Dr. Shah's attestation for any changes to the treatment plan Discharge Exam gen - sitting at side of bed, tearful; NAD neck - no JVD mouth - MMM, no lesions heart - RRR, s1 s2, no murmur lungs - mild rales L base, otherwise CTA b/l with good airation and no wheezing; no increased work of breathing abd - soft NT ND BS+ ext - no edema, pulses 2 + b/l psych - a/o x 3 , tearful Discharge Data Allergies Allergy/AdvReac Type Severity Reaction Status Date / Time No Known Allergies Allergy Verified 02/09/23 10:45 Consultations 03/14/23 12:16 ED Decision to Admit Stat 03/14/23 12:56 Consult Pulmonology Routine 03/14/23 16:00 Consult Oncology Routine Procedures Performed Operation Date: 03/15/23 11:00 Actual Procedures p Bronchoscopy Radiology - Jose Elias Cao MD Ordered Studies 03/14/23 07:15 CT soft tissue neck w con Stat 03/14/23 07:39 CT chest diagnostic w con Stat 03/16/23 00:00 MR brain wo/w con Routine Hospital Course (1) Pneumonitis: Pt presented with pneumonitis. It is uncertain if this represents immune checkpoint inhibitor induced pneumonitis vs infectious pneumonitis. Thus far procal is negative, sed rate and crp are normal, and respiratory biofire is negative. s/p bronch today by Dr Cao for tissue sampling, BAL, etc cultures from bronch sent in the event this is bacterial pneumonitis - cont cefepime, doxy MRSA screen is negative -- defer on MRSA coverage cont steroids IV - this will cover keytruda induced pneumonitis if this is the primary problem appreciate pulmonary assistance appreciate heme/onc assistance (2) Stage IV adenocarcinoma of lung: initial dx 05/2022 LLL adenocarcinoma with metastatic disease to right cervical lymph node follows with Dr Wolf completed carboplatin/pemetrexed chemotherapy and had previously responded to that regimen earlier this year. this was followed by maintenance IV pembrolizumab [id number]. now with concern for pembrolizumab induced pneumonitis (see #1 above). Dr Wolf considering placing her back on carboplatin/pemetrexed. s/p bronch today - see #1. agree with MRI brain as recommended by Dr Wolf. (3) COPD (chronic obstructive pulmonary disease) with chronic bronchitis: cont usual inhalers nebs prn steroids - primarily for #1 (4) Hypothyroidism (acquired): Continue levothyroxine TSH 3.6 yesterday (5) Diabetes: Hold metformin Pharmacy glycemic team is managing cont basal-bolus insulins (6) Liver cirrhosis: -LFT's are WNL -No signs of hepatic encephalopathy -Euvolemic - no decompensation 2nd to prior HepC infection? (7) GERD (gastroesophageal reflux disease): Continue daily PPI (8) Anxiety: Continue prn Ativan (9) Tobacco use: quit early 2022 (10) Hepatitis C: s/p Rx for such in the past does have radiographic evidence of cirrhosis however Plan defer on chemical DVT prophy today but start such tomorrow - DVT/PE risk is quite high in light of stage 4 lung ca Discharge Plan Discharge Items Patient Disposition: Home - Self-Care Reason For Visit: Shortness of breath Discharge Diagnosis: 1. Pneumonitis - suspected to be due to Keytruda therapy 2. Lung cancer 3. Partial vocal cord paralysis 4. COPD Activity: As commented below Activity Comment: gradually increase activity over the next week or two Exercise/Sports: Wait until after follow-up appointment Non-emergency contact: Primary Care Provider and Assessment Analyst Call non-emergency contact if: you have any medication questions, your symptoms worsen and you have a fever Follow-up/Referrals: Mary Khan MD [Primary Care Provider] - 03/22/23 11:30 am Jose Elias Cao MD [Physician] - 04/18/23 1:00 pm (THIS APPOINTMENT WILL BE WITH TYRON DAY) Diana Wolf MD [Physician] - (please see Dr Wolf as directed by her office ) Diet: Carb Consistent or DM2 Addtl Attending Provider Instructions: Ms Willoughby, You were hospitalized due to difficulty breathing. CT scan of the chest showed evidence of something called "pneumonitis." There are various causes of pneumonitis including infection (viral, bacterial, fungal, etc), inflammation, etc. You underwent bronchoscopy by Dr Cao from [facility]. Cultures and tissue samples were taken during the procedure. Thus far there is no evidence of an infectious process. Also during the procedure Dr Cao noted that one of your vocal cords is not functioning normally. It is suspected that your Keytruda for your lung cancer may have caused the pneumonitis. The treatment for this is to stop the Keytruda and to start on prednisone. You responded quickly to IV steroids during your brief stay. Oxygen was weaned off. Thus far all of your cultures are negative. Your testing for COVID, influenza, RSV, etc all returned negative. Dr Wolf from oncology saw you in consult and plans to restart standard chemotherapy in the near-future. You may need radiation treatments as well. Recommendations - * prednisone for the pneumonitis - take as follows. You are being prescribed 10mg tablets. Start TOMORROW, 03/17/23. * 4 tablets (total 40mg) once daily with food x 7 days, THEN - * 3 tablets (total 30mg) once daily with food x 7 days, THEN - * 2 tablets (total 20mg) once daily with food thereafter * once you reach the 2 tablets daily dosing stay on this amount until you see Dr Cao in the pulmonary clinic * if you notice that you are having more heartburn, stomach upset, etc because of the prednisone you can increase your pantoprazole medication from once a day to twice daily dosing * know that the prednisone WILL RAISE your blood sugars; if your blood sugars are consistently greater than 180 please let your family doctor know as they will likely need to make adjustments to your diabetes regimen Follow-up - see separate section ; we will also get you set up with [facility] for the vocal cord problem Return to [facility] if - * you have fevers over 100 degrees * you have worsening shortness of breath * you have chest pains * you have difficulty swallowing * any other concerns It was our pleasure to care for you! Pending Studies at Discharge: Yes Studies:: cultures from bronchoscopy; biopsies from bronchoscopy Stand-Alone Forms: My [facility], Smoking Cessation Medications and DC Order Prescriptions: New prednisone 10 mg tablet 10 mg PO DIRECTED Qty: 100 0RF Rx Instructions: start 03/17/23, take w/ food. 4 tabs PO QD x 7 days, then 3 tabs PO QD x 7 d ays, then 2 tabs PO QD thereafter. Continued albuterol sulfate [ProAir HFA] 90 mcg/actuation HFA aerosol inhaler 2 inh inhalation QID PRN (Reason: shortness of breath or wheezing) Qty: 8.5 1RF Breo Ellipta 100-25 mcg/dose blister with device 1 inh inhalation QAM Qty: 180 1RF Rx Instructions: USE 1 INHALATION ONCE DAILY. metformin 500 mg tablet extended release 24 hr 1,000 mg PO QAM Qty: 180 1RF Patient Comments: cannot take 05/20 and 05/[address] levothyroxine 50 mcg capsule 50 mcg PO QAM lorazepam 0.5 mg tablet 0.5 mg PO TID PRN (Reason: anxiety) Qty: 90 0RF Rx Instructions: PDMP searched, okay to fill cyclobenzaprine 10 mg tablet 10 mg PO TID PRN (Reason: muscle spasm) Qty: 30 3RF diclofenac sodium 3 % gel 1 applic topical BID PRN (Reason: Pain) pantoprazole 40 mg tablet,delayed release (DR/EC) 40 mg PO QPM Discharge Orders: Discharge Order (Routine); Ordered 03/16/23 Ordered By: Charles Mckeon Admission Data Admit Date/Time: 03/14/23 12:19 Attending Provider: Charles Mckeon Admit Provider: Kenan Shah Primary Care Provider: Mary Khan Other Providers: Kenan Shah; Jose Elias Cao; [place]; Yamini Diehl; Carolina Romero; Andreas Perdue; Anastasiia Rosales; Dallas Siddiqui; Kinjal Regalado; Theron Calvin; Georgi Barnett; Jovan Chew; Diana Wolf; zCCP,No Attending Coding Diagnoses Pneumonitis J98.4 Adenocarcinoma of lung, stage 4, unspecified laterality C34.90 Laterality: unspecified laterality COPD (chronic obstructive pulmonary disease) with chronic bronchitis J44.9 Hypothyroidism (acquired) E03.9 Type 2 diabetes mellitus without complication, without long-term current use of insulin E11.9 Diabetes mellitus type: type 2 Diabetes mellitus fpc insulin use: without intermediate manager use Diabetes mellitus complication status: without complication Other cirrhosis of liver K74.69 Hepatic cirrhosis type: other cirrhosis Gastroesophageal reflux disease without esophagitis K21.9 Esophagitis presence: without esophagitis Anxiety F41.9 Tobacco use Z72.0 Hepatitis C B19.20
== END 2023-03-16 13:29 | disposition home or self-care (01) | DRG 167 ==
LOC: ED 06:58 → EDINP 12:19 → SUATTDRO 12:19 → 2N 14:18